=== PATIENT | female | born 1940 | race Caucasian/White ===

== ENCOUNTER 2017-12-18 11:14 | Inpatient (IN) ==
[2017-12-18] MEDS ORDERED: Docusate Sodium 100 MG Capsule PO PRN (15:34)
--- NOTE | 2017-12-18 17:16 | P.CONCA ---
History of Present Illness Service: Cardiology Consult date: 12/18/17 Reason for Consult: Severe aortic valve stenosis Primary Care Provider: UNKNOWN History of Present Illness: This is a 77-year-old female she has past medical history of rheumatic fever, hypothyroidism, hypertension, hyperlipidemia, and prior stroke. Patient presented to [facility] in [facility] with right hip pain and inability to ambulate or stand. Patient was found to have a right intertrochanteric hip fracture. Patient has also had a history of known aortic valve stenosis with murmur. Cardiology was consulted for consideration of cardiac clearance related to the right hip replacement. Transthoracic echocardiogram revealed severely reduced aortic valve area of 0.52 cm consistent with severe aortic valve stenosis and preserved left ventricular ejection fraction of 55-60%. Patient underwent cardiac catheterization which revealed moderate to severe mid left anterior descending coronary artery stenosis of 60-70% and mid right coronary artery stenosis of 50%. Patient was transferred for consideration of aortic valve replacement prior to hip surgery. Cardiothoracic surgery evaluated the patient and would be considered a transcatheter aortic valve replacement candidate. I was consulted for further recommendations as part of the structural heart team. Review of Systems All other systems reviewed negative except as stated in HPI [facility] - Medical History Medical History: Medical History (Last Updated 12/18/17 @ 17:12 by Cuco Valero MD) Anemia Aortic valve stenosis Hyperlipidemia Hypertension Hypothyroidism Stroke - Social History I have reviewed the patient's Social History: Yes - Tobacco History Tobacco Use In Past 30 Days: No - Alcohol History How Often Do You Have a Drink Containing Alcohol: Monthly or less - Substance Use History Substance History: No History of Abuse Medications and Allergies Active Medications: Active Medications Acetaminophen (Tylenol) 650 mg PO Q4H PRN PRN Reason: Temp > 100.4 Hydrocodone Bitart/Acetaminophen ([place] 5/325) 1 tab PO Q4H PRN PRN Reason: Acute Pain Al Hydroxide/Mg Hydroxide (Milk Of Magnesia Liq) 30 ml PO DAILY PRN PRN Reason: SEVERE CONSITIPATION Allopurinol (Zyloprim) 300 mg PO DAILY [facility] Docusate Sodium (Colace) 100 mg PO BID PRN PRN Reason: CONSTIPATION Enoxaparin Sodium (Lovenox Inj) 40 mg SQ DAILY [facility] Levothyroxine Sodium (Synthroid) 112 mcg PO DAILY@0600 [facility] Midodrine (Proamatine) 5 mg PO TID@0700,1200,1700 [facility] Ondansetron HCl (Zofran Inj) 4 mg IV.PUSH Q6H PRN PRN Reason: NAUSEA Oxybutynin Chloride (Ditropan) 5 mg PO TID [facility] Pravastatin Sodium (Pravachol) 80 mg PO DAILY [facility] Sodium Chloride (Ns Flush) 2 ml IV.FLUSH BID [facility] Sodium Chloride (Ns Flush) 2 ml IV.FLUSH PRN PRN PRN Reason: FLUSH AFTER USING IV ACCESS Allergies Allergy/AdvReac Type Severity Reaction Status Date / Time No Known Allergies Allergy Verified 12/18/17 15:58 Home Medications Medication Instructions Recorded Confirmed Type Vitamin D2 12/18/17 12/18/17 History acetaminophen 650 mg PO Q4H PRN 12/18/17 12/18/17 History alendronate 70 mg PO QWEEK 12/18/17 12/18/17 History allopurinol 300 mg PO DAILY 12/18/17 12/18/17 History amlodipine 5 mg PO DAILY 12/18/17 12/18/17 History docusate sodium 100 mg PO PRN 12/18/17 12/18/17 History enoxaparin 40 mg SUBCUT DAILY 12/18/17 12/18/17 History levothyroxine 112 mcg PO DAILY 12/18/17 12/18/17 History lisinopril 80 mg PO BID 12/18/17 12/18/17 History midodrine 10 mg PO DAILY 12/18/17 12/18/17 History morphine (PF) in 0.9 % NaCl 2 mg IV Q4H PRN 12/18/17 12/18/17 History omeprazole 20 mg PO DAILY 12/18/17 12/18/17 History ondansetron HCl (PF) 4 mg IV PRN 12/18/17 12/18/17 History oxybutynin chloride 5 mg PO TID 12/18/17 12/18/17 History pravastatin 80 mg PO DAILY 12/18/17 12/18/17 History Exam Vital signs: Vital Signs 12/18/17 14:00 Temperature 98 F Pulse Rate 86 Respiratory Rate 20 Blood Pressure 128/78 Pulse Oximetry 98 Intake & Output 12/17/17 12/18/17 12/18/17 18:59 06:59 18:59 Intake Total 240 / 240 Balance 240 / 240 Weight 76.2 kg Intake: Oral 240 / 240 Other: # Incontinent Voids 1 # Urine Diapers 1 Date of Last Bowel Movement 12/17/17 Weight On Admission 76.2 kg - Constitutional no acute distress - Routine HEENT Exam Head: Present: normocephalic Eye: Absent: PERRL ENT: Present: mucous membranes moist - Routine Neck Exam Absent: JVD - Routine Respiratory Exam Present: CTA bilaterally - Routine Cardiovascular Exam Present: RRR, murmur - Routine Abdominal Exam Present: soft, normoactive bowel sounds - Routine Extremities Exam Absent: full ROM - Routine Neurological Exam Present: oriented X3, CN II-XII intact. Absent: sensory deficit, motor deficit Results Intake and Output 12/18/17 12/18/17 12/18/17 06:59 14:59 22:59 Intake Total 240 / 240 Balance 240 / 240 Intake: Oral 240 / 240 Other: # Incontinent Voids 1 # Urine Diapers 1 Date of Last Bowel Movement 12/17/17 Weight 76.2 kg Weight On Admission 76.2 kg Patient Weight 12/19/17 06:59 Weight 76.2 kg Assessment and Plan - Assessment (1) Aortic valve stenosis Code(s): I35.0 - Nonrheumatic aortic (valve) stenosis Status: Acute - Plan Severe aortic valve stenosis -I will discuss the case in further details with cardiothoracic surgery. Patient would be a reasonable candidate for transcatheter aortic valve replacement. I would like to review the cardiac catheterization films to make sure the mid left anterior descending coronary artery stenosis would not potentially be an issue of rapid ventricular pacing is necessary for valve deployment. Patient would likely benefit from physical rehabilitation after hip surgery. She may need a short time inpatient rehabilitation prior to undertaking any transcatheter or surgical procedures. We will continue with current medical management approach and review imaging as available.
--- NOTE | 2017-12-18 17:59 | US ---
EXAM DATE: 12/18/2017 5:55 PM EDT AGE/SEX: 77 years / Female INDICATIONS: PreOp cardiac surgery. CLINICAL DATA: This is the patient's initial encounter. Patient reports that signs and symptoms have been present for 1 day and indicates a pain score of 0/10. MEDICAL/SURGICAL HISTORY: . Dizziness. None. COMPARISON: POI, US ECHOCARDIOGRAM, 08/05/2014. . VELOCITY PARAMETERS: ICA/CCA Ratio: Right 1.0 , Left 1.3 ICA: Right 57.5 cm/sec, Left 71.3 cm/sec CCA: Right 58.1 cm/sec, Left 54.0 cm/sec ECA: Right 38.3 cm/sec, Left 41.8 cm/sec Vertebral: Right 35.5 cm/sec antegrade, Left 64.7 cm/sec antegrade FINDINGS: Right Carotid: Moderate arteriosclerotic plaque is visualized.The waveforms are within normal limits . Left Carotid: Moderate arteriosclerotic plaque is visualized. The waveforms are within normal limits . Other: None. CONCLUSION: 1. Right Internal Carotid Artery: Moderate plaque without hemodynamically significant stenosis. 2. Left Internal Carotid Artery: Moderate plaque without hemodynamically significant stenosis. Electronically signed by: Alban Romano MD 12/18/2017 5:58 PM EDT
[2017-12-18] MEDS: Acetaminophen 325 MG Tablet PO PRN (20:20)
--- NOTE | 2017-12-18 20:55 | XR ---
EXAM DATE: 12/18/2017 8:50 PM EDT AGE/SEX: 77 years / Female INDICATIONS: Evaluate for pneumonia, pneumothorax, or communicable disease. Pre op CABG. CLINICAL DATA: This is the patient's initial encounter. Patient reports that signs and symptoms have been present for 1 day and indicates a pain score of 0/10. MEDICAL/SURGICAL HISTORY: Hypertension. None. COMPARISON: No prior exams available for comparison. FINDINGS: PA and lateral views of the chest demonstrate left basilar pneumonia. Heart normal in size. The cardi omediastinal contours are unremarkable. Osseous structures are intact. CONCLUSION: Left lower lobe pneumonia. Treatment and follow-up to resolution. Electronically signed by: Brandon Akers MD 12/18/2017 8:53 PM EDT
[2017-12-19 04:32] LABS: Baso % (Auto) 0.4 % (0.0-2.0); Eos # (Auto) 0.3 th/mm3 (0.0-0.4); Eos % (Auto) 2.8 % (0.0-4.0); Hematocrit 23.8 % (35.0-46.0); Hemoglobin 8.1 gm/dL (11.6-15.3); Lymph # (Auto) 1.7 th/mm3 (1.0-4.8); Lymph % (Auto) 17.3 % (9.0-44.0); Mean Corpuscular HGB Conc 33.9 % (32.0-36.0); Mean Corpuscular Hemoglobin 33.1 pg (27.0-34.0); Mean Corpuscular Volume 97.6 fL (80.0-100.0); Mean Platelet Volume 7.9 fL (7.0-11.0); Mono # (Auto) 0.6 th/mm3 (0.0-0.9); Mono % (Auto) 6.4 % (0.0-8.0); Neut # (Auto) 7.1 th/mm3 (1.8-7.7); Neut % (Auto) 73.1 % (16.0-70.0); Platelet Count 340 th/mm3 (150-450); Red Blood Count 2.44 mil/mm3 (4.00-5.30); White Blood Count 9.8 th/mm3 (4.0-11.0)
[2017-12-19 04:38] LABS: INR 1.1 Ratio; Prothrombin Time 11.1 sec (9.8-11.6)
[2017-12-19 05:00] LABS: Albumin 2.3 g/dL (3.4-5.0); Anion Gap 10 meq/L (5-15); Aspartate Aminotransferase 36 U/L (15-37); Blood Urea Nitrogen 6 mg/dL (7-18); Calcium 8.4 mg/dL (8.5-10.1); Carbon Dioxide 23.8 meq/L (21.0-32.0); Chloride 105 meq/L (98-107); Glomerular Filtration Rate 75 mL/min (>89); Glucose,Random 87 mg/dL (74-106); Potassium 3.8 meq/L (3.5-5.1); Sodium 139 meq/L (136-145)
[2017-12-19 05:02] LABS: Alanine Aminotransferase 33 U/L (10-53)
[2017-12-19 05:03] LABS: Alkaline Phosphatase 208 U/L (45-117); Total Protein 5.6 g/dL (6.4-8.2)
[2017-12-19] MEDS: Levothyroxine 112 MCG Tablet PO SCH (06:04)
--- NOTE | 2017-12-19 07:18 | MB ---
cc: Shadia Davenport MD DATE: 12/18/2017 HISTORY OF PRESENT ILLNESS: This is a 77-year-old female patient of Dr. Gomez, also Dr. David Archer, who was transferred from [facility] just recently, sustained a hip fracture, underwent right intertrochanteric fracture repair by Dr. Sanchez 10 days ago after sustaining a fall at home where she tripped and fell on the ground getting out of her car. There was no loss of consciousness, nor did she hit her head. During the course of her hospital stay, she apparently had an episode of some hypotension, shortness of breath, which led to an echocardiogram, which showed severe aortic stenosis with a valve area of 0.52 cm2. Peak gradient of 156. The left atrium was dilated. Some trivial mitral regurgitation, trace tricuspid regurgitation. The patient then underwent cardiac catheterization, which showed a 60% to 70% stenosis in the mid LAD. The RCA had a 50% stenosis in the midvessel. The distal portion had a 60% stenosis, mild pulmonary hypertension, right-sided heart pressures included RA pressures of 7/4, PA pressure 26/11 with a mean of 19, wedge pressure 18/15 with a mean of 12, SVR of 1840. Cardiac output of 4 liters per minute, valve area by catheterization showed a 0.4 cm2. She has been transferred to our facility to be evaluated for aortic valve replacement versus transcatheter aortic valve replacement, also with coronary disease, 2 vessels. PAST MEDICAL HISTORY: Includes history of rheumatic heart fever, severe aortic stenosis, hypertension, hyperlipidemia, osteoporosis, urinary incontinence, hypothyroidism, gout, gastroesophageal reflux disease, history of remote cerebrovascular accident in the past. CT chest showed left lower lobe pulmonary nodule that was recommended outpatient CT followup. PAST SURGICAL HISTORY: Right hip repair, recent also tonsillectomy. ALLERGIES: The patient has no known allergies. HOME MEDICATIONS: 1. Fosamax 70 mg weekly on . 2. Allopurinol 300 p.o. daily. 3. Amlodipine 5 mg daily, which was discontinued due to her hypotension in the hospital. 4. Levothyroxine 112 mcg daily. 5. Lisinopril 40 p.o. b.i.d. 6. Omeprazole 20 p.o. daily. 7. Oxybutynin 5 mg p.o. t.i.d. 8. Pravachol 40 p.o. daily. 9. She was also recently placed on milrinone 5 mg p.o. t.i.d. 10. Lovenox 40 mg daily while in the hospital. FAMILY HISTORY: Father at age 80 from diabetes. Mother from a stroke. SOCIAL HISTORY: The patient is , lives with her and her son lives with them. Prior to her fall and fractured hip, she was driving, cooking, walking half a mile per day. She did smoke for about 25 years, quit 20 years ago, 2 drinks per day. REVIEW OF SYSTEMS: GENERAL: No night sweats, fever, heat and cold intolerance. SKIN: No psoriasis, itching or hives. HEENT: No blurred vision, hearing loss. RESPIRATORY: Positive for recent shortness of breath. No paroxysmal nocturnal dyspnea. No orthopnea. No chest pain, only lightheadedness, some presyncope episode while in the hospital. GASTROINTESTINAL: No diarrhea or vomiting. GENITOURINARY: Positive for stress incontinence. NEUROLOGIC: Positive for history of cerebrovascular accident. ENDOCRINOLOGY: Positive for hypothyroidism. No diabetes per the patient. PHYSICAL EXAMINATION: VITAL SIGNS: Blood pressure 128/86, heart rate of 80. GENERAL: Patient is awake, alert, in no acute distress. HEENT: Head is normocephalic, atraumatic. Pupils equal and reactive. Oral mucosa pink, moist. She does wear dentures, but those were lost during her hospital stay at [facility]. NECK: Supple. No JVD. HEART: Sounds S1, S2, with a grade 3/6 systolic murmur, best heard on the left sternal border. LUNGS: Clear to auscultation. No wheezes, rales or rhonchi. ABDOMEN: Obese, soft, nontender. No masses or organomegaly. EXTREMITIES: She has got a healing scar to the right hip that is intact, well approximated with no drainage. She has a grade 2-3 coccyx decubitus noted. Her right lower leg has some ecchymosis and some mild swelling. She has good distal pulses. LABORATORY DATA: Recently done at [facility] included hemoglobin 7.9, hematocrit of 23, platelet count of 356. White cell count of 7.2. Sodium 135, potassium was 3.0, the repeat potassium was 3.5. BUN of 7 with a creatinine of 0.7. AST was 59, ALT of 51. GFR was 80 by Cockcroft calculation. EKG further testing including chest x-ray, TAVR CTA, carotid ultrasound are pending. STS data will be documented in the electronic record. At this point, the plan will be decided as per Dr. Davenport on further decision made regarding transcatheter aortic valve replacement and also addressing the blockages in the LAD and the RCA. Dictated by ZACKERY Pires The patient was examined and the chart reviewed on 12/18/2017. I agree with above. The clinical and ECHO findings were discussed in detail with the patient. Therapeutic options available including TAVR versus SAVR was discussed. Given her recent orthopedic procedure, I think she will best be managed with continued rehabilitation from her hip surgery with aortic valve therapy to follow. I agree that she will maximally benefit from TAVR given her frailty and significant medical comorbidities. The risks, complications including but not limited to bleeding, infection, stroke, myocardial injury and , and benefits of the procedure were discussed in details and all questions answered. The patient understands the provided information and agrees to proceed with the planned operation. Proceed with TAVR. Thank you allowing me to participate in the care of this patient. MD NAKIA Jiménez/hardy/trudy , 03:47 PM , 04:02 PM KIKA
--- NOTE | 2017-12-19 08:29 | P.PNCA ---
Addendum entered and electronically signed by BRITTANY Tabares 12/19/17 08:36 : aortic valve area= 0.52 cm CXR shows Left basilar infiltrate/pneumonia. Original Note: Subjective Interval history: patient reports mild cough. She does reports exertional dyspnea with moderate exertion over the past year with occasional atypical brief chest pains with and without exertion. Feeling well this morning without chest pain,sob or palpitations. Medications and Allergies Allergies Allergy/AdvReac Type Severity Reaction Status Date / Time No Known Allergies Allergy Verified 12/18/17 15:58 Home Medications Medication Instructions Recorded Confirmed Type Vitamin D2 12/18/17 12/18/17 History acetaminophen 650 mg PO Q4H PRN 12/18/17 12/18/17 History alendronate 70 mg PO QWEEK 12/18/17 12/18/17 History allopurinol 300 mg PO DAILY 12/18/17 12/18/17 History amlodipine 5 mg PO DAILY 12/18/17 12/18/17 History docusate sodium 100 mg PO PRN 12/18/17 12/18/17 History enoxaparin 40 mg SUBCUT DAILY 12/18/17 12/18/17 History levothyroxine 112 mcg PO DAILY 12/18/17 12/18/17 History lisinopril 80 mg PO BID 12/18/17 12/18/17 History midodrine 10 mg PO DAILY 12/18/17 12/18/17 History morphine (PF) in 0.9 % NaCl 2 mg IV Q4H PRN 12/18/17 12/18/17 History omeprazole 20 mg PO DAILY 12/18/17 12/18/17 History ondansetron HCl (PF) 4 mg IV PRN 12/18/17 12/18/17 History oxybutynin chloride 5 mg PO TID 12/18/17 12/18/17 History pravastatin 80 mg PO DAILY 12/18/17 12/18/17 History Active Medications: Active Medications Acetaminophen (Tylenol) 650 mg PO Q4H PRN PRN Reason: Temp > 100.4 Last Admin: 12/18/17 20:20 Dose: 650 mg Hydrocodone Bitart/Acetaminophen ([place] 5/325) 1 tab PO Q4H PRN PRN Reason: Acute Pain Al Hydroxide/Mg Hydroxide (Milk Of Magnesia Liq) 30 ml PO DAILY PRN PRN Reason: SEVERE CONSITIPATION Allopurinol (Zyloprim) 300 mg PO DAILY [facility] Docusate Sodium (Colace) 100 mg PO BID PRN PRN Reason: CONSTIPATION Enoxaparin Sodium (Lovenox Inj) 40 mg SQ DAILY [facility] Levothyroxine Sodium (Synthroid) 112 mcg PO DAILY@0600 [facility] Last Admin: 12/19/17 06:04 Dose: 112 mcg Midodrine (Proamatine) 5 mg PO TID@0700,1200,1700 [facility] Last Admin: 12/19/17 06:04 Dose: 5 mg Ondansetron HCl (Zofran Inj) 4 mg IV.PUSH Q6H PRN PRN Reason: NAUSEA Oxybutynin Chloride (Ditropan) 5 mg PO TID [facility] Last Admin: 12/18/17 18:18 Dose: 5 mg Pravastatin Sodium (Pravachol) 80 mg PO DAILY [facility] Sodium Chloride (Ns Flush) 2 ml IV.FLUSH BID [facility] Last Admin: 12/18/17 20:22 Dose: 2 ml Sodium Chloride (Ns Flush) 2 ml IV.FLUSH PRN PRN PRN Reason: FLUSH AFTER USING IV ACCESS Physical Exam Vital signs: Vital Signs 12/18/17 14:00 12/18/17 19:00 12/18/17 20:00 Temperature 98 F 98 F Pulse Rate 86 95 H 90 Respiratory Rate 20 Blood Pressure 128/78 120/72 Pulse Oximetry 98 95 12/18/17 21:00 12/18/17 22:00 12/18/17 22:49 Temperature 98.1 F Pulse Rate 86 80 92 H Respiratory Rate 16 Blood Pressure 117/70 Pulse Oximetry 93 L 12/18/17 23:33 12/19/17 00:33 12/19/17 01:33 Temperature Pulse Rate 89 80 88 Respiratory Rate Blood Pressure Pulse Oximetry 12/19/17 02:33 12/19/17 03:00 12/19/17 03:57 Temperature 98.4 F Pulse Rate 88 86 85 Respiratory Rate 18 Blood Pressure 127/69 Pulse Oximetry 94 L 12/19/17 04:00 12/19/17 05:00 12/19/17 06:00 Temperature Pulse Rate 90 86 88 Respiratory Rate Blood Pressure Pulse Oximetry Intake & Output 12/18/17 12/19/17 12/19/17 18:59 06:59 18:59 Intake Total 240 / 240 240 / 240 Balance 240 / 240 240 / 240 Weight 76.2 kg 76 kg Intake: Oral 240 / 240 240 / 240 Other: # Incontinent Voids 1 # Urine Diapers 1 2 Date of Last Bowel Movement 12/17/17 Weight On Admission 76.2 kg Results 12/19/17 04:14 12/19/17 04:14 Cardiac Enzymes 12/19/17 Range/Units 04:14 AST 36 (15-37) U/L Coagulation 12/19/17 Range/Units 04:14 PT 11.1 (9.8-11.6) sec CBC 12/19/17 Range/Units 04:14 WBC 9.8 (4.0-11.0) th/mm3 RBC 2.44 L (4.00-5.30) mil/mm3 Hgb 8.1 L (11.6-15.3) gm/dL Hct 23.8 L (35.0-46.0) % Plt Count 340 (150-450) th/mm3 Neut # (Auto) 7.1 (1.8-7.7) th/mm3 Lymph # (Auto) 1.7 (1.0-4.8) th/mm3 [place] # (Auto) 0.6 (0.0-0.9) th/mm3 Eos # (Auto) 0.3 (0.0-0.4) th/mm3 Baso # (Auto) 0.0 (0.0-0.2) th/mm3 Comprehensive Metabolic Panel 12/19/17 Range/Units 04:14 Sodium 139 (136-145) meq/L Potassium 3.8 (3.5-5.1) meq/L Chloride 105 (98-107) meq/L Carbon Dioxide 23.8 (21.0-32.0) meq/L BUN 6 L (7-18) mg/dL Creatinine 0.75 (0.50-1.00) mg/dL Calcium 8.4 L (8.5-10.1) mg/dL AST 36 (15-37) U/L ALT 33 (10-53) U/L Alkaline Phosphatase 208 H (45-117) U/L Total Protein 5.6 L (6.4-8.2) g/dL Albumin 2.3 L (3.4-5.0) g/dL Intake and Output 12/18/17 12/19/17 12/19/17 22:59 06:59 14:59 Intake Total 240 / 240 240 / 240 Balance 240 / 240 240 / 240 Intake: Oral 240 / 240 240 / 240 Other: # Incontinent Voids 1 # Urine Diapers 1 2 Weight 76 kg - Imaging and Cardiology Imaging: Impressions Carotid Doppler Study 12/18/17 15:22 CONCLUSION: 1. Right Internal Carotid Artery: Moderate plaque without hemodynamically significant stenosis. 2. Left Internal Carotid Artery: Moderate plaque without hemodynamically significant stenosis. Chest X-Ray 12/18/17 15:22 CONCLUSION: Left lower lobe pneumonia. Treatment and follow-up to resolution. Assessment and Plan - Assessment (1) Aortic valve stenosis Code(s): I35.0 - Nonrheumatic aortic (valve) stenosis Status: Acute - Plan 77 yo F with rheumatic fever as a child, aortic stenosis, hypothyroidism, HTN, HLD, prior CVA and CAD presents from [facility] after incurring a R intertrochanteric fracture due to mechanical fall while getting out of her car 2 weeks ago. Her hip was surgically repaired 10 days ago. During hospitalization and echo showed severe , cardiac catheterization revealed 2 vessel disease (mod-severe LAD, 50% RCA stenosis). She has been [place] [facility] [place] and treatment of CAD and with TAVR. Severe aortic valve stenosis -She is a reasonable candidate for TAVR. Will review the cardiac catheterization films to make sure the mid left anterior descending coronary artery stenosis would not potentially be an issue of rapid ventricular pacing is necessary for valve deployment. Patient would likely benefit from physical rehabilitation after hip surgery. She may need a short time inpatient rehabilitation prior to undertaking any transcatheter or surgical procedures. We will continue with current medical management approach and review imaging as available. - Attending Attestation agree with above anemia - Hb 7.9-8.1. known CAD. severe transfuse 1 PRBC. lasix 20 IV x 1 after repeat Hb in am improve strength and mobility to help with meaningful recovery discussed with Dr. Davenport. plan for inpatient rehab x 1-2 weeks then TAVR follow Hb continue medical therapy
[2017-12-19] MEDS: Enoxaparin Inj 40 MG/0.4 ML Syringe SQ SCH (09:14)
[2017-12-19 09:51] LABS: Bacteria,Urine Rare /hpf; Bilirubin,Urine Negative (Negative); Clarity,Urine Clear (Clear); Color,Urine Straw (Yellw/Straw); Glucose,Urine (UA) Negative (Negative); Leukocyte Esterase,Urine Negative (Negative); Nitrite,Urine Negative (Negative); Specific Gravity,Urine 1.008 (1.002-1.035); Squamous Epithelial Cell,Urine 3 /hpf (0-5)
[2017-12-19] MEDS ORDERED: Sodium Chlor 0.9% Inj 250 ML IV.SIG SCH (12:00)
[2017-12-19] MEDS: Ferrous Sulfate 325 MG Tablet PO SCH ×2 (12:09→16:12)
[2017-12-19] MEDS: Allopurinol 300 MG Tablet PO SCH (12:10)
--- NOTE | 2017-12-19 12:23 | P.PNWCN ---
Wound Care Nurse Consult Description: Wound consult ordered by Loren SOTO for wound management. Communicated with: Barrett VALDIVIA, Loren SOTO Recommendation: 1. Encourage patient to reposition to left and right side every 2 hours for comfort and offloading. 2. Cleanse left upper buttocks with normal saline only (wound cleanser deactivated Santyl by 80%). 3. Apply Santyl 2mm thick to necrotic wound base ,Apply Calazime cream to periwound cover with saline moistened gauze secure with border gauze or ABD.Change dressing daily or as needed for exudate management or dislodgement. 4. Sign and date all dressings. 5. Reinforce steri strip to right lateral hip incision as needed. Additional information: Patient was seen today by script writer for wound management.Patient alert on stretcher upon script writer arrival in no acute distress.Patient was able to independently reposition self to left side for visual assessment. Brick Or Block Maker was able to visualize sacral/coccyx region.Patient noted to have 10 day old surgical incision to lateral right hip with incision dehiscence noted ~3cm. incision cleansed with normal saline pat dry Cavilon skin prep applied 3 steri strips applied . Patient has deformed sacral/coccyx veering to right side .States deformity is caused by prior fracture.Brick Or Block Maker was able to visualize sacral region patient has mixed etiology moisture /friction/pressure injury measuring 6.0cm x 4.3cm x yellow/brown slough. Wound base is 80% moist yellow/ brown adhered slough 20% pink partial thickness tissue loss.wound edges are well defined irregular in shape even with wound base.Periwound blanchable.Wound cleansed with normal saline pat dry Calazime cream applied to wound base and periwound covered with ABD secure with paper tape.Patient tolerated wound acre well Barrett VALDIVIA to apply Santyl when available to floor. Wound/Pressure Injury - Wound Left Sacrum Wound Staging: Unstageable Wound Assessment: Admission Wound Type: Pressure Injury Is This a Chronic Wound: Yes Requested from Provider a Wound Care Consult: No (Paty VALDIVIA,[facility] seen 12/19) Length (cm): 6.0 Width (cm): 4.3 Wound Bed Appearance: Necrotic, Peeling Skin, [place], Shiny Surrounding Tissue Appearance: Blanched/Dull Surrounding Tissue Temperature: Cool Drainage Description: Serosanguinous Drainage Amount: Scant Drainage Odor: No Odor Dressing Status: Changed Cleansing Solution: Saline Topical: Calazime Primary Dressing: Absorbant Pad Tape Type: Paper Wound Dressing Change Date: 12/19/17
[2017-12-19] MEDS: Acetaminophen 325 MG Tablet PO PRN ×2 (13:39→18:31)
--- NOTE | 2017-12-19 14:12 | P.PNCV ---
- Note Subjective/Hospital Course: 77-year-old female patient of Dr. Gomez, also Dr. David Archer, who was transferred from [facility] just recently, sustained a hip fracture, underwent right intertrochanteric fracture repair by Dr. Sanchez 10 days ago after sustaining a fall at home where she tripped and fell on the ground getting out of her car. There was no loss of consciousness, nor did she hit her head. During the course of her hospital stay, she apparently had an episode of some hypotension, shortness of breath, which led to an echocardiogram , which showed severe aortic stenosis with a valve area of 0.52 cm2. Peak gradient of 156. The left atrium was dilated. Some trivial mitral regurgitation, trace tricuspid regurgitation. The patient then underwent cardiac catheterization, which showed a 60% to 70% stenosis in the mid LAD. The RCA had a 50% stenosis in the midvessel. The distal portion had a 60% stenosis, mild pulmonary hypertension, right-sided heart pressures included RA pressures of 7/4, PA pressure 26/11 with a mean of 19, wedge pressure 18/15 with a mean of 12, SVR of 1840. Cardiac output of 4 liters per minute, valve area by catheterization showed a 0.4 cm2. She has been transferred to our facility to be evaluated for aortic valve replacement versus transcatheter aortic valve replacement, also with coronary disease, 2 vessels. PAST MEDICAL HISTORY: Includes history of rheumatic heart fever, severe aortic stenosis, hypertension, hyperlipidemia, osteoporosis, urinary incontinence, hypothyroidism, gout, gastroesophageal reflux disease, history of remote cerebrovascular accident in the past. CT chest showed left lower lobe pulmonary nodule that was recommended outpatient CT followup. 12/19 pt feels fair HGB 8.1 for RBC today await TAVR CTA will dc midodrine BP stable OOB with PT / activity for full weight bearing ok per Dr Sanchez ( ortho at [facility] ) Hospitalist consult agree with rehab placement appreciate wound care Objective: Vital Signs - 24 hr 12/18/17 19:00 12/18/17 20:00 12/18/17 21:00 Temperature 98 F Pulse Rate 95 H 90 86 Respiratory Rate Blood Pressure 120/72 Pulse Oximetry 95 12/18/17 22:00 12/18/17 22:49 12/18/17 23:33 Temperature 98.1 F Pulse Rate 80 92 H 89 Respiratory Rate 16 Blood Pressure 117/70 Pulse Oximetry 93 L 12/19/17 00:33 12/19/17 01:33 12/19/17 02:33 Temperature Pulse Rate 80 88 88 Respiratory Rate Blood Pressure Pulse Oximetry 12/19/17 03:00 12/19/17 03:57 12/19/17 04:00 Temperature 98.4 F Pulse Rate 86 85 90 Respiratory Rate 18 Blood Pressure 127/69 Pulse Oximetry 94 L 12/19/17 05:00 12/19/17 06:00 12/19/17 07:00 Temperature Pulse Rate 86 88 107 H Respiratory Rate Blood Pressure Pulse Oximetry 12/19/17 08:00 12/19/17 09:00 12/19/17 10:00 Temperature 97.9 F Pulse Rate 91 H 96 H 97 H Respiratory Rate 20 Blood Pressure 130/78 Pulse Oximetry 96 12/19/17 11:00 12/19/17 11:18 12/19/17 12:00 Temperature 98.1 F Pulse Rate 91 H 91 H 100 H Respiratory Rate 20 Blood Pressure 116/70 Pulse Oximetry 96 GENERAL: A&O x 3 SKIN: Warm and dry. pt has stage 2 pressure ulcer on coccyx right hip incision intact and well approximated HEAD: Normocephalic. EYES: No scleral icterus. No injection or drainage. NECK: Supple, trachea midline. No JVD or lymphadenopathy. CARDIOVASCULAR: Regular rate and rhythm 3/6 SM , no gallops, or rubs. RESPIRATORY: Breath sounds equal bilaterally. No accessory muscle use. GASTROINTESTINAL: Abdomen soft, non-tender, nondistended. MUSCULOSKELETAL: No cyanosis, or edema. BACK: Nontender without obvious deformity. No CVA tenderness. Labs: Laboratory Results - last 12 hr 12/19/17 12/19/17 12/19/17 04:14 04:14 04:14 WBC 9.8 RBC 2.44 L Hgb 8.1 L Hct 23.8 L MCV 97.6 MCH 33.1 MCHC 33.9 RDW 15.0 Plt Count 340 MPV 7.9 Neut % (Auto) 73.1 H Lymph % (Auto) 17.3 [place] % (Auto) 6.4 Eos % (Auto) 2.8 Baso % (Auto) 0.4 Neut # (Auto) 7.1 Lymph # (Auto) 1.7 [place] # (Auto) 0.6 Eos # (Auto) 0.3 Baso # (Auto) 0.0 WBC Differential . Differential Comment Auto diff final PT 11.1 INR 1.1 Sodium 139 Potassium 3.8 Chloride 105 Carbon Dioxide 23.8 Anion Gap 10 BUN 6 L Creatinine 0.75 Estimated GFR 75 L Random Glucose 87 Calcium 8.4 L Total Bilirubin 0.6 AST 36 ALT 33 Alkaline Phosphatase 208 H Total Protein 5.6 L Albumin 2.3 L Urine Color Urine Clarity Urine pH Ur Specific [place] Urine Protein Urine Glucose (UA) Urine Ketones Urine Occult Blood Urine Nitrate Urine Bilirubin Urine Urobilinogen Ur Leukocyte Esterase Urine WBC Ur Squamous Epith Cells Urine Bacteria Micro UA Comment Ur Microscopic Review Urine Culture Comments Blood Type Blood Type Recheck Antibody Screen MTS Gel Crossmatch 12/19/17 12/19/17 12/19/17 04:14 09:15 12:40 WBC RBC Hgb Hct MCV MCH MCHC RDW Plt Count MPV Neut % (Auto) Lymph % (Auto) [place] % (Auto) Eos % (Auto) Baso % (Auto) Neut # (Auto) Lymph # (Auto) [place] # (Auto) Eos # (Auto) Baso # (Auto) WBC Differential Differential Comment PT INR Sodium Potassium Chloride Carbon Dioxide Anion Gap BUN Creatinine Estimated GFR Random Glucose Calcium Total Bilirubin AST ALT Alkaline Phosphatase Total Protein Albumin Urine Color Straw Urine Clarity Clear Urine pH 7.0 Ur Specific [place] 1.008 Urine Protein Negative Urine Glucose (UA) Negative Urine Ketones Negative Urine Occult Blood Moderate H Urine Nitrate Negative Urine Bilirubin Negative Urine Urobilinogen Less than 2 Ur Leukocyte Esterase Negative Urine WBC Less than 1 Ur Squamous Epith Cells 3 Urine Bacteria Rare H Micro UA Comment Culture not ind Ur Microscopic Review Not Reportable Urine Culture Comments Culture not ind Blood Type B Positive Blood Type Recheck Required Antibody Screen Negative MTS Gel Crossmatch See Detail Result Diagrams: 12/19/17 04:14 12/19/17 04:14 Telemetry: NSR - Plan (1) S/P hip replacement Plan: PT/OT full weight bearing (2) Blood loss anemia Plan: for PRBC today quaic stool (3) HCAP (healthcare-associated pneumonia) Plan: add levaquin x 5 days (4) Aortic valve stenosis Plan: on ASA TAVR work up
--- NOTE | 2017-12-19 15:41 | CT ---
EXAM DATE: 12/19/2017 12:29 PM EDT AGE/SEX: 77 years / Female INDICATIONS: TAVR, aortic stenosis. CLINICAL DATA: This is the patient's initial encounter. Patient reports that signs and symptoms have been present for 1 day and indicates a pain score of 3/10. MEDICAL/SURGICAL HISTORY: Cerebrovascular disease. Cardiovascular disease. . Right hip surgery. RADIATION DOSE: 11.32 CTDI (mGy) COMPARISON: No prior exams available for comparison. TECHNIQUE: Volumetric scanning was performed using a multi-row detector CT scanner during bolus infu keiko of 95 ml Omnipaque 350 (iohexol) nonionic water-soluble contrast as a single exam dose. The da ta was post processed with a variety of visualization algorithms including full volume maximum intens ity projection, multi-planar sliding thin slab reformation, curved planar reformation, and surface re ndering techniques. Using automated exposure control and adjustment of the mA and/or kV according to patient size, radiation dose was kept as low as reasonably achievable to obtain optimal diagnostic q uality images. DICOM format image data is available electronically for review and comparison. FINDINGS: CARDIAC: The coronary system is right dominant. Diffuse coronary artery atherosclerotic calcificatio ns. There is no pericardial effusion AORTIC ROOT/VALVE: 3 cusps are evident with severe calcifications. The aortic root measures 3.4 cm. Mid thoracic aorta measures 4.4 cm with mild scattered calcifications. THORACIC AORTA: The thoracic aortic root is normal with normal branching of the great vessels. Ther e is no evidence of aneurysm or dissection. Calcified plaque involving the arch and origin of the arc h vessels. No hemodynamically significant stenosis involving the origin of the arch vessels. A 30-40% stenosis of the mid left subclavian artery noted. ABDOMINAL AORTA: The aorta is normal in caliber without aneurysm or dissection. Diffuse calcified pl aque throughout the abdominal aorta and common iliac arteries bilaterally. CELIAC ARTERY: Celiac artery is widely patent. SMA: Superior mesenteric artery is widely patent. RIGHT RENAL ARTERY: Right renal artery is widely patent. LEFT RENAL ARTERY: Left renal artery is heavily calcified with 50-60% stenosis of its origin.. RIGHT COMMON ILIAC: No evidence of aneurysm, mural thrombus, dissection, or stenosis. The vessel is calcified. The common femoral measures 10 mm. LEFT COMMON ILIAC: No evidence of aneurysm, mural thrombus, dissection, or stenosis. The vessel is c alcified. The common femoral measures 10 mm THORAX: Tiny posterior layering bilateral pleural effusions. No infiltrates or masses. A calcified g ranuloma is seen within the left lower lobe. A large hiatal hernia.. ABDOMEN: Cholelithiasis. Bilateral cortical renal cysts. More abundant on the right. No hydronephros is. Scattered colonic diverticuli without acute inflammation. PELVIS: Air noted within the lumen of the urinary bladder. No wall thickening observed. This suggest s recent instrumentation. A right hip prosthesis. Bilateral SI joint sclerotic change. No fusion. Deg enerative changes of the lumbar spine. CONCLUSION: 1. 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 2. 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 3. 50-60% stenosis of the left renal artery. 4. Cholelithiasis. 5. Small bilateral pleural effusions. Electronically signed by: Humberto Michel MD 12/19/2017 3:39 PM EDT
[2017-12-19] MEDS: Collagenase Oint 30 GM Tube TOPICAL SCH (16:10)
[2017-12-19] MEDS: Levofloxacin 500 mg Premix Inj 500 MG/100 ML PIGGYBACK IV.SIG SCH (16:11)
[2017-12-19 16:44] LABS: Hemoglobin A1c 4.8 % (4.3-6.0)
[2017-12-20] MEDS: Levothyroxine 112 MCG Tablet PO SCH (05:49)
--- NOTE | 2017-12-20 08:34 | P.PNCV ---
- Note Subjective/Hospital Course: 77-year-old female patient of Dr. Gomez, also Dr. David Archer, who was transferred from [place] just recently, sustained a hip fracture, underwent right intertrochanteric fracture repair by Dr. Sanchez 10 days ago after sustaining a fall at home where she tripped and fell on the ground getting out of her car. There was no loss of consciousness, nor did she hit her head. During the course of her hospital stay, she apparently had an episode of some hypotension, shortness of breath, which led to an echocardiogram , which showed severe aortic stenosis with a valve area of 0.52 cm2. Peak gradient of 156. The left atrium was dilated. Some trivial mitral regurgitation, trace tricuspid regurgitation. The patient then underwent cardiac catheterization, which showed a 60% to 70% stenosis in the mid LAD. The RCA had a 50% stenosis in the midvessel. The distal portion had a 60% stenosis, mild pulmonary hypertension, right-sided heart pressures included RA pressures of 7/4, PA pressure 26/11 with a mean of 19, wedge pressure 18/15 with a mean of 12, SVR of 1840. Cardiac output of 4 liters per minute, valve area by catheterization showed a 0.4 cm2. She has been transferred to our facility to be evaluated for aortic valve replacement versus transcatheter aortic valve replacement, also with coronary disease, 2 vessels. PAST MEDICAL HISTORY: Includes history of rheumatic heart fever, severe aortic stenosis, hypertension, hyperlipidemia, osteoporosis, urinary incontinence, hypothyroidism, gout, gastroesophageal reflux disease, history of remote cerebrovascular accident in the past. CT chest showed left lower lobe pulmonary nodule that was recommended outpatient CT followup. 12/19 pt feels fair HGB 8.1 for RBC today await TAVR CTA will dc midodrine BP stable OOB with PT / activity for full weight bearing ok per Dr Sanchez ( ortho at [facility] ) Hospitalist consult agree with rehab placement appreciate wound care 12/20 Clinically and hemodynamically stable and doing well Again discussed plan and options with her in detail including interim rehab prior to aortic valve procedure May need intervention to the LAD as well prior to her TAVR Appreciate consultants input Objective: Vital Signs - 24 hr 12/19/17 09:00 12/19/17 10:00 12/19/17 11:00 Temperature Pulse Rate 96 H 97 H 91 H Respiratory Rate Blood Pressure Pulse Oximetry 12/19/17 11:18 12/19/17 12:00 12/19/17 13:00 Temperature 98.1 F Pulse Rate 91 H 100 H 98 H Respiratory Rate 20 Blood Pressure 116/70 Pulse Oximetry 96 12/19/17 14:00 12/19/17 14:17 12/19/17 14:30 Temperature 98.6 F 98.9 F Pulse Rate 97 H 92 H 93 H Respiratory Rate 16 16 Blood Pressure 111/78 115/82 Pulse Oximetry 97 98 12/19/17 15:00 12/19/17 16:00 12/19/17 17:00 Temperature 98.8 F 98.9 F Pulse Rate 98 H 80 93 H Respiratory Rate 16 20 Blood Pressure 110/65 110/65 Pulse Oximetry 95 98 12/19/17 18:00 12/19/17 19:00 12/19/17 20:00 Temperature 98.7 F 98.5 F Pulse Rate 98 H 87 92 H Respiratory Rate 18 18 Blood Pressure 135/77 138/77 Pulse Oximetry 98 94 L 12/19/17 21:00 12/19/17 22:00 12/19/17 23:00 Temperature Pulse Rate 86 88 85 Respiratory Rate Blood Pressure Pulse Oximetry 12/19/17 23:23 12/20/17 00:00 12/20/17 01:00 Temperature 98.9 F Pulse Rate 92 H 88 88 Respiratory Rate 18 Blood Pressure 118/76 Pulse Oximetry 94 L 12/20/17 02:00 12/20/17 03:00 12/20/17 04:00 Temperature 98.7 F Pulse Rate 88 88 91 H Respiratory Rate 18 Blood Pressure 122/66 Pulse Oximetry 3 L 12/20/17 05:00 12/20/17 06:00 Temperature Pulse Rate 86 88 Respiratory Rate Blood Pressure Pulse Oximetry Labs: Laboratory Results - last 12 hr 12/19/17 04:14 Hemoglobin A1c 4.8 Result Diagrams: 12/19/17 04:14 12/19/17 04:14 - Plan (1) S/P hip replacement Plan: PT/OT full weight bearing (2) Blood loss anemia Plan: for PRBC today quaic stool (3) HCAP (healthcare-associated pneumonia) Plan: add levaquin x 5 days (4) Aortic valve stenosis Plan: on ASA TAVR work up
[2017-12-20] MEDS: Enoxaparin Inj 40 MG/0.4 ML Syringe SQ SCH (10:07)
[2017-12-20] MEDS: Collagenase Oint 30 GM Tube TOPICAL SCH (10:07)
[2017-12-20] MEDS: Allopurinol 300 MG Tablet PO SCH ×2 (10:08→10:12)
--- NOTE | 2017-12-20 10:13 | P.PNCA ---
Subjective Interval history: Pt without complaints Medications and Allergies Active Medications: Active Medications Acetaminophen (Tylenol) 650 mg PO Q4H PRN PRN Reason: Temp > 100.4 Last Admin: 12/19/17 18:31 Dose: 650 mg Hydrocodone Bitart/Acetaminophen ([place] 5/325) 1 tab PO Q4H PRN PRN Reason: Acute Pain Al Hydroxide/Mg Hydroxide (Milk Of Magnesia Liq) 30 ml PO DAILY PRN PRN Reason: SEVERE CONSITIPATION Allopurinol (Zyloprim) 300 mg PO DAILY [facility] Last Admin: 12/19/17 12:10 Dose: 300 mg Aspirin (Ecotrin) 81 mg PO DAILY [facility] Last Admin: 12/19/17 12:15 Dose: 81 mg Collagenase (Santyl Oint) 1 applicatio TOPICAL DAILY [facility] Last Admin: 12/19/17 16:10 Dose: 1 applicatio Docusate Sodium (Colace) 100 mg PO BID PRN PRN Reason: CONSTIPATION Enoxaparin Sodium (Lovenox Inj) 40 mg SQ DAILY [facility] Last Admin: 12/19/17 09:14 Dose: 40 mg Ferrous Sulfate (Ferosul) 325 mg PO BID@1200,1700 [facility] Last Admin: 12/19/17 16:12 Dose: 325 mg Levofloxacin/Dextrose (Levaquin 500 Mg Premix Inj) 500 mg in 100 mls @ 100 mls/ hr IV.SIG Q24H [facility] Stop: 12/24/17 13:59 Last Infusion: 12/20/17 07:27 Dose: Infused Levothyroxine Sodium (Synthroid) 112 mcg PO DAILY@0600 [facility] Last Admin: 12/20/17 05:49 Dose: 112 mcg Ondansetron HCl (Zofran Inj) 4 mg IV.PUSH Q6H PRN PRN Reason: NAUSEA Last Admin: 12/20/17 05:49 Dose: 4 mg Oxybutynin Chloride (Ditropan) 5 mg PO TID [facility] Last Admin: 12/19/17 18:29 Dose: 5 mg Pravastatin Sodium (Pravachol) 80 mg PO DAILY [facility] Last Admin: 12/19/17 09:13 Dose: 80 mg Sodium Chloride (Ns Flush) 2 ml IV.FLUSH BID [facility] Last Admin: 12/20/17 05:49 Dose: 2 ml Sodium Chloride (Ns Flush) 2 ml IV.FLUSH PRN PRN PRN Reason: FLUSH AFTER USING IV ACCESS Allergies Allergy/AdvReac Type Severity Reaction Status Date / Time No Known Allergies Allergy Verified 12/18/17 15:58 Home Medications Medication Instructions Recorded Confirmed Type Vitamin D2 12/18/17 12/18/17 History acetaminophen 650 mg PO Q4H PRN 12/18/17 12/18/17 History alendronate 70 mg PO QWEEK 12/18/17 12/18/17 History allopurinol 300 mg PO DAILY 12/18/17 12/18/17 History amlodipine 5 mg PO DAILY 12/18/17 12/18/17 History docusate sodium 100 mg PO PRN 12/18/17 12/18/17 History enoxaparin 40 mg SUBCUT DAILY 12/18/17 12/18/17 History levothyroxine 112 mcg PO DAILY 12/18/17 12/18/17 History lisinopril 80 mg PO BID 12/18/17 12/18/17 History midodrine 10 mg PO DAILY 12/18/17 12/18/17 History morphine (PF) in 0.9 % NaCl 2 mg IV Q4H PRN 12/18/17 12/18/17 History omeprazole 20 mg PO DAILY 12/18/17 12/18/17 History ondansetron HCl (PF) 4 mg IV PRN 12/18/17 12/18/17 History oxybutynin chloride 5 mg PO TID 12/18/17 12/18/17 History pravastatin 80 mg PO DAILY 12/18/17 12/18/17 History Physical Exam Vital signs: Vital Signs 12/19/17 11:00 12/19/17 11:18 12/19/17 12:00 Temperature 98.1 F Pulse Rate 91 H 91 H 100 H Respiratory Rate 20 Blood Pressure 116/70 Pulse Oximetry 96 12/19/17 13:00 12/19/17 14:00 12/19/17 14:17 Temperature 98.6 F Pulse Rate 98 H 97 H 92 H Respiratory Rate 16 Blood Pressure 111/78 Pulse Oximetry 97 12/19/17 14:30 12/19/17 15:00 12/19/17 16:00 Temperature 98.9 F 98.8 F 98.9 F Pulse Rate 93 H 98 H 80 Respiratory Rate 16 16 20 Blood Pressure 115/82 110/65 110/65 Pulse Oximetry 98 95 98 12/19/17 17:00 12/19/17 18:00 12/19/17 19:00 Temperature 98.7 F Pulse Rate 93 H 98 H 87 Respiratory Rate 18 Blood Pressure 135/77 Pulse Oximetry 98 12/19/17 20:00 12/19/17 21:00 12/19/17 22:00 Temperature 98.5 F Pulse Rate 92 H 86 88 Respiratory Rate 18 Blood Pressure 138/77 Pulse Oximetry 94 L 12/19/17 23:00 12/19/17 23:23 12/20/17 00:00 Temperature 98.9 F Pulse Rate 85 92 H 88 Respiratory Rate 18 Blood Pressure 118/76 Pulse Oximetry 94 L 12/20/17 01:00 12/20/17 02:00 12/20/17 03:00 Temperature Pulse Rate 88 88 88 Respiratory Rate Blood Pressure Pulse Oximetry 12/20/17 04:00 12/20/17 05:00 12/20/17 06:00 Temperature 98.7 F Pulse Rate 91 H 86 88 Respiratory Rate 18 Blood Pressure 122/66 Pulse Oximetry 3 L 12/20/17 07:00 Temperature Pulse Rate 83 Respiratory Rate Blood Pressure Pulse Oximetry Intake & Output 12/19/17 12/20/17 12/20/17 18:59 06:59 18:59 Intake Total 1100 / 1100 480 / 480 350 / 350 Output Total 800 / 800 1650 / 1650 Balance 300 / 300 -1170 / -1170 350 / 350 Weight 73 kg Intake: IV 350 / 350 Levaquin 500 mg Premix Inj 500 100 / 100 mg In 100 ml @ 100 mls/hr IV. SIG Q24H [facility] Rx#:[id number] NS Inj 250 ML @ 15 mls/hr IV. 250 / 250 SIG ONCE SABI Rx#:[id number] Oral 600 / 600 480 / 480 Other 100 / 100 Rbc As-3 Leukoreduced Unit 100 / 100 [id number] Intake (Blood Product) Amt 400 / 400 Rbc As-3 Leukoreduced Unit 400 / 400 [id number] Output: Urine 800 / 800 1650 / 1650 Other: Date of Last Bowel Movement 12/19/17 12/20/17 # Bowel Movements 1 - Constitutional no acute distress - Routine HEENT Exam Head: Present: normocephalic - Routine Respiratory Exam Present: CTA bilaterally - Routine Cardiovascular Exam Comments: RRR, harsh MILAGROS - Routine Extremities Exam Comments: no edema Results 12/19/17 04:14 12/19/17 04:14 Cardiac Enzymes 12/19/17 Range/Units 04:14 AST 36 (15-37) U/L Coagulation 12/19/17 Range/Units 04:14 PT 11.1 (9.8-11.6) sec CBC 12/19/17 Range/Units 04:14 WBC 9.8 (4.0-11.0) th/mm3 RBC 2.44 L (4.00-5.30) mil/mm3 Hgb 8.1 L (11.6-15.3) gm/dL Hct 23.8 L (35.0-46.0) % Plt Count 340 (150-450) th/mm3 Neut # (Auto) 7.1 (1.8-7.7) th/mm3 Lymph # (Auto) 1.7 (1.0-4.8) th/mm3 [place] # (Auto) 0.6 (0.0-0.9) th/mm3 Eos # (Auto) 0.3 (0.0-0.4) th/mm3 Baso # (Auto) 0.0 (0.0-0.2) th/mm3 Comprehensive Metabolic Panel 12/19/17 Range/Units 04:14 Sodium 139 (136-145) meq/L Potassium 3.8 (3.5-5.1) meq/L Chloride 105 (98-107) meq/L Carbon Dioxide 23.8 (21.0-32.0) meq/L BUN 6 L (7-18) mg/dL Creatinine 0.75 (0.50-1.00) mg/dL Calcium 8.4 L (8.5-10.1) mg/dL AST 36 (15-37) U/L ALT 33 (10-53) U/L Alkaline Phosphatase 208 H (45-117) U/L Total Protein 5.6 L (6.4-8.2) g/dL Albumin 2.3 L (3.4-5.0) g/dL Intake and Output 12/19/17 12/20/17 12/20/17 22:59 06:59 14:59 Intake Total 1100 / 1100 480 / 480 350 / 350 Output Total 800 / 800 1650 / 1650 Balance 300 / 300 -1170 / -1170 350 / 350 Intake: IV 350 / 350 Levaquin 500 mg Premix Inj 500 100 / 100 mg In 100 ml @ 100 mls/hr IV. SIG Q24H [facility]I Rx#:[id number] NS Inj 250 ML @ 15 mls/hr IV. 250 / 250 SIG ONCE [facility]I Rx#:[id number] Oral 600 / 600 480 / 480 Other 100 / 100 Rbc As-3 Leukoreduced Unit 100 / 100 [id number] Intake (Blood Product) Amt 400 / 400 Rbc As-3 Leukoreduced Unit 400 / 400 [id number] Output: Urine 800 / 800 1650 / 1650 Other: Date of Last Bowel Movement 12/20/17 12/20/17 # Bowel Movements 1 Weight 73 kg - Imaging and Cardiology Imaging: Impressions Carotid Doppler Study 12/18/17 15:22 CONCLUSION: 1. Right Internal Carotid Artery: Moderate plaque without hemodynamically significant stenosis. 2. Left Internal Carotid Artery: Moderate plaque without hemodynamically significant stenosis. Chest X-Ray 12/18/17 15:22 CONCLUSION: Left lower lobe pneumonia. Treatment and follow-up to resolution. Chest CT 12/19/17 00:00 CONCLUSION: 1. 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 2. 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 3. 50-60% stenosis of the left renal artery. 4. Cholelithiasis. 5. Small bilateral pleural effusions. Assessment and Plan - Plan A/P severe - stable, Issac Wynne and I all agree she will need rehab and recovery prior to her AVR anemia- pneumonia-
[2017-12-20] MEDS: Pantoprazole Sodium 20 MG DR Tablet PO SCH (12:26)
[2017-12-20] MEDS: Ferrous Sulfate 325 MG Tablet PO SCH ×2 (12:28→16:36)
[2017-12-20] MEDS: Levofloxacin 500 mg Premix Inj 500 MG/100 ML PIGGYBACK IV.SIG SCH (13:50)
[2017-12-20 14:38] LABS: Hematocrit 31.3 % (35.0-46.0); Hemoglobin 10.7 gm/dL (11.6-15.3); Mean Corpuscular Hemoglobin 31.4 pg (27.0-34.0); Mean Corpuscular Volume 92.3 fL (80.0-100.0); Mean Platelet Volume 7.8 fL (7.0-11.0); Platelet Count 389 th/mm3 (150-450); Red Cell Distribution Width 19.7 % (11.6-17.2); White Blood Count 12.3 th/mm3 (4.0-11.0)
[2017-12-21] MEDS: Levothyroxine 112 MCG Tablet PO SCH (06:24)
[2017-12-21] MEDS: Enoxaparin Inj 40 MG/0.4 ML Syringe SQ SCH (08:56)
[2017-12-21] MEDS: Pantoprazole Sodium 20 MG DR Tablet PO SCH (08:57)
[2017-12-21] MEDS: Collagenase Oint 30 GM Tube TOPICAL SCH (08:58)
--- NOTE | 2017-12-21 09:26 | P.PNCV ---
- Note Subjective/Hospital Course: 77-year-old female patient of Dr. Gomez, also Dr. David Archer, who was transferred from [facility] just recently, sustained a hip fracture, underwent right intertrochanteric fracture repair by Dr. Sanchez 10 days ago after sustaining a fall at home where she tripped and fell on the ground getting out of her car. There was no loss of consciousness, nor did she hit her head. During the course of her hospital stay, she apparently had an episode of some hypotension, shortness of breath, which led to an echocardiogram , which showed severe aortic stenosis with a valve area of 0.52 cm2. Peak gradient of 156. The left atrium was dilated. Some trivial mitral regurgitation, trace tricuspid regurgitation. The patient then underwent cardiac catheterization, which showed a 60% to 70% stenosis in the mid LAD. The RCA had a 50% stenosis in the midvessel. The distal portion had a 60% stenosis, mild pulmonary hypertension, right-sided heart pressures included RA pressures of 7/4, PA pressure 26/11 with a mean of 19, wedge pressure 18/15 with a mean of 12, SVR of 1840. Cardiac output of 4 liters per minute, valve area by catheterization showed a 0.4 cm2. She has been transferred to our facility to be evaluated for aortic valve replacement versus transcatheter aortic valve replacement, also with coronary disease, 2 vessels. PAST MEDICAL HISTORY: Includes history of rheumatic heart fever, severe aortic stenosis, hypertension, hyperlipidemia, osteoporosis, urinary incontinence, hypothyroidism, gout, gastroesophageal reflux disease, history of remote cerebrovascular accident in the past. CT chest showed left lower lobe pulmonary nodule that was recommended outpatient CT followup. 12/19 pt feels fair HGB 8.1 for RBC today await TAVR CTA will dc midodrine BP stable OOB with PT / activity for full weight bearing ok per Dr Sanchez ( ortho at [facility] ) Hospitalist consult agree with rehab placement appreciate wound care 12/20 Clinically and hemodynamically stable and doing well Again discussed plan and options with her in detail including interim rehab prior to aortic valve procedure May need intervention to the LAD as well prior to her TAVR Appreciate consultants input 12/21 Clinical stable Awaiting [place] inpatient rehabilitation evaluation Tums for GERD Objective: Vital Signs - 24 hr 12/20/17 10:00 12/20/17 11:00 12/20/17 12:00 Temperature Pulse Rate 80 85 102 H Respiratory Rate Blood Pressure Pulse Oximetry 12/20/17 12:15 12/20/17 13:00 12/20/17 13:23 Temperature 97.8 F Pulse Rate 94 H 92 H Respiratory Rate 18 18 Blood Pressure 125/71 Pulse Oximetry 96 12/20/17 14:00 12/20/17 14:48 12/20/17 15:00 Temperature 98.3 F Pulse Rate 86 96 H 86 Respiratory Rate 18 Blood Pressure 115/71 Pulse Oximetry 99 12/20/17 16:00 12/20/17 17:00 12/20/17 18:00 Temperature Pulse Rate 84 86 92 H Respiratory Rate Blood Pressure Pulse Oximetry 12/20/17 19:00 12/20/17 20:00 12/20/17 20:48 Temperature 97.2 F L Pulse Rate 110 H 92 H Respiratory Rate 18 18 Blood Pressure 120/74 Pulse Oximetry 95 12/20/17 21:00 12/20/17 22:00 12/20/17 23:00 Temperature 98.4 F Pulse Rate 90 86 95 H Respiratory Rate 16 Blood Pressure 110/64 Pulse Oximetry 93 L 12/21/17 00:00 12/21/17 01:00 12/21/17 02:00 Temperature Pulse Rate 86 89 77 Respiratory Rate Blood Pressure Pulse Oximetry 12/21/17 03:00 12/21/17 04:00 12/21/17 05:00 Temperature 98.6 F Pulse Rate 80 79 83 Respiratory Rate 18 Blood Pressure 105/65 Pulse Oximetry 93 L 12/21/17 06:00 12/21/17 07:00 12/21/17 08:00 Temperature 98.5 F Pulse Rate 80 93 H 84 Respiratory Rate 18 Blood Pressure 108/64 Pulse Oximetry 94 L 12/21/17 09:00 Temperature Pulse Rate 86 Respiratory Rate Blood Pressure Pulse Oximetry Result Diagrams: 12/20/17 13:30 12/19/17 04:14 - Plan (1) S/P hip replacement Plan: PT/OT full weight bearing (2) Blood loss anemia Plan: for PRBC today quaic stool (3) HCAP (healthcare-associated pneumonia) Plan: add levaquin x 5 days (4) Aortic valve stenosis Plan: on ASA TAVR work up
[2017-12-21] MEDS: Ferrous Sulfate 325 MG Tablet PO SCH ×2 (12:27→17:31)
[2017-12-21] MEDS: Levofloxacin 500 mg Premix Inj 500 MG/100 ML PIGGYBACK IV.SIG SCH (13:59)
[2017-12-22] MEDS: Levothyroxine 112 MCG Tablet PO SCH (05:08)
[2017-12-22] MEDS ORDERED: Allopurinol 300 MG Tablet PO SCH (09:00)
[2017-12-22] MEDS: Pantoprazole Sodium 20 MG DR Tablet PO SCH (09:11)
[2017-12-22] MEDS: Enoxaparin Inj 40 MG/0.4 ML Syringe SQ SCH (09:11)
[2017-12-22] MEDS: Collagenase Oint 30 GM Tube TOPICAL SCH (09:11)
--- NOTE | 2017-12-22 10:33 | P.PNCV ---
- Note Subjective/Hospital Course: 77-year-old female patient of Dr. Gomez, also Dr. David Archer, who was transferred from [facility] just recently, sustained a hip fracture, underwent right intertrochanteric fracture repair by Dr. Sanchez 10 days ago after sustaining a fall at home where she tripped and fell on the ground getting out of her car. There was no loss of consciousness, nor did she hit her head. During the course of her hospital stay, she apparently had an episode of some hypotension, shortness of breath, which led to an echocardiogram , which showed severe aortic stenosis with a valve area of 0.52 cm2. Peak gradient of 156. The left atrium was dilated. Some trivial mitral regurgitation, trace tricuspid regurgitation. The patient then underwent cardiac catheterization, which showed a 60% to 70% stenosis in the mid LAD. The RCA had a 50% stenosis in the midvessel. The distal portion had a 60% stenosis, mild pulmonary hypertension, right-sided heart pressures included RA pressures of 7/4, PA pressure 26/11 with a mean of 19, wedge pressure 18/15 with a mean of 12, SVR of 1840. Cardiac output of 4 liters per minute, valve area by catheterization showed a 0.4 cm2. She has been transferred to our facility to be evaluated for aortic valve replacement versus transcatheter aortic valve replacement, also with coronary disease, 2 vessels. PAST MEDICAL HISTORY: Includes history of rheumatic heart fever, severe aortic stenosis, hypertension, hyperlipidemia, osteoporosis, urinary incontinence, hypothyroidism, gout, gastroesophageal reflux disease, history of remote cerebrovascular accident in the past. CT chest showed left lower lobe pulmonary nodule that was recommended outpatient CT followup. 12/19 pt feels fair HGB 8.1 for RBC today await TAVR CTA will dc midodrine BP stable OOB with PT / activity for full weight bearing ok per Dr Sanchez ( ortho at [facility] ) Hospitalist consult agree with rehab placement appreciate wound care 12/20 Clinically and hemodynamically stable and doing well Again discussed plan and options with her in detail including interim rehab prior to aortic valve procedure May need intervention to the LAD as well prior to her TAVR Appreciate consultants input 12/21 Clinical stable Awaiting [place] inpatient rehabilitation evaluation Tums for GERD 12/22 doing well VSS await rehab placement also eval by Dr Mustafa then bring back for TAVR at later date Objective: Vital Signs - 24 hr 12/21/17 11:00 12/21/17 12:00 12/21/17 13:00 Temperature 98.6 F Pulse Rate 86 88 85 Respiratory Rate 18 Blood Pressure 118/72 Pulse Oximetry 93 L 12/21/17 14:00 12/21/17 15:00 12/21/17 16:00 Temperature 98.7 F Pulse Rate 88 99 H 92 H Respiratory Rate 18 Blood Pressure 117/73 Pulse Oximetry 94 L 12/21/17 17:00 12/21/17 18:00 12/21/17 19:00 Temperature 97.8 F Pulse Rate 88 88 86 Respiratory Rate 16 Blood Pressure 113/69 Pulse Oximetry 97 12/21/17 20:00 12/21/17 21:00 12/21/17 22:00 Temperature Pulse Rate 75 74 80 Respiratory Rate Blood Pressure Pulse Oximetry 12/21/17 23:00 12/22/17 00:00 12/22/17 01:00 Temperature 97.8 F Pulse Rate 70 81 93 H Respiratory Rate 16 Blood Pressure 113/74 Pulse Oximetry 96 12/22/17 02:00 12/22/17 03:00 12/22/17 04:00 Temperature 98.1 F Pulse Rate 92 H 83 90 Respiratory Rate 16 Blood Pressure 108/68 Pulse Oximetry 95 12/22/17 05:00 12/22/17 05:57 12/22/17 07:00 Temperature 98.2 F Pulse Rate 72 74 86 Respiratory Rate 16 Blood Pressure 104/67 Pulse Oximetry 95 12/22/17 08:00 12/22/17 09:00 12/22/17 10:00 Temperature Pulse Rate 85 87 83 Respiratory Rate Blood Pressure Pulse Oximetry GENERAL: A&O x 3 SKIN: Warm and dry. right hip incision intact and well approximated , coccyx dressing in place HEAD: Normocephalic. EYES: No scleral icterus. No injection or drainage. NECK: Supple, trachea midline. No JVD or lymphadenopathy. CARDIOVASCULAR: Regular rate and rhythm without 3/6 systolic murmurs, no gallops, or rubs. RESPIRATORY: Breath sounds equal bilaterally. No accessory muscle use. GASTROINTESTINAL: Abdomen soft, non-tender, nondistended. MUSCULOSKELETAL: No cyanosis, or edema. BACK: Nontender without obvious deformity. No CVA tenderness. Result Diagrams: 12/20/17 13:30 12/19/17 04:14 - Plan (1) S/P hip replacement Plan: PT/OT full weight bearing (2) Blood loss anemia Plan: s/p PRBC quaic stool (3) HCAP (healthcare-associated pneumonia) Plan: add levaquin x 5 days (4) Aortic valve stenosis Plan: on ASA TAVR work up in progress plan to dc to rehab and bring back for procedure
[2017-12-22 12:15] LABS: White Blood Count 8.2 th/mm3 (4.0-11.0)
[2017-12-22 12:16] LABS: Baso % (Auto) 0.4 % (0.0-2.0); Eos # (Auto) 0.2 th/mm3 (0.0-0.4); Eos % (Auto) 2.2 % (0.0-4.0); Hemoglobin 10.7 gm/dL (11.6-15.3); Lymph # (Auto) 1.1 th/mm3 (1.0-4.8); Mean Corpuscular HGB Conc 34.6 % (32.0-36.0); Mean Corpuscular Hemoglobin 31.6 pg (27.0-34.0); Mean Corpuscular Volume 91.2 fL (80.0-100.0); Mono # (Auto) 0.7 th/mm3 (0.0-0.9); Mono % (Auto) 8.7 % (0.0-8.0); Neut # (Auto) 6.1 th/mm3 (1.8-7.7); Neut % (Auto) 74.7 % (16.0-70.0); Platelet Count 370 th/mm3 (150-450); Red Cell Distribution Width 19.4 % (11.6-17.2)
[2017-12-22 12:41] LABS: Calcium 8.9 mg/dL (8.5-10.1); Carbon Dioxide 27.1 meq/L (21.0-32.0); Potassium 3.7 meq/L (3.5-5.1)
[2017-12-22] MEDS: Ferrous Sulfate 325 MG Tablet PO SCH ×2 (13:53→17:17)
[2017-12-22] MEDS: Levofloxacin 500 mg Premix Inj 500 MG/100 ML PIGGYBACK IV.SIG SCH (13:54)
--- NOTE | 2017-12-22 15:21 | P.CON ---
History of Present Illness Service: CT Surgery Consult date: 12/22/17 Requesting Physician: Cuco Valero Reason for Consult: Severe symptomatic aortic stenosis Primary Care Provider: UNKNOWN Chief Complaint: Shortness of breath History of Present Illness: 77-year-old female patient Dr. David Archer, who was transferred from [facility] after having her hip repaired s/p fracture following a fall During the course of her hospital stay, she apparently had an episode of some hypotension, shortness of breath, which led to an echocardiogram, which showed severe aortic stenosis with a valve area of 0.52 cm2. The patient then underwent cardiac catheterization, which showed 2 vessel CAD ivlving the LAD and RCA systems. She was transferred to [place] for further evaluation and management. PAST MEDICAL HISTORY: Includes history of rheumatic heart fever, severe aortic stenosis, hypertension, hyperlipidemia, osteoporosis, urinary incontinence, hypothyroidism, gout, gastroesophageal reflux disease, history of remote cerebrovascular accident in the past. CT chest showed left lower lobe pulmonary nodule that was recommended outpatient CT followup. PAST SURGICAL HISTORY: Right hip repair, recent also tonsillectomy. FAMILY HISTORY: Father at age 80 from diabetes. Mother from a stroke. SOCIAL HISTORY: The patient is , lives with her and her son lives with them. Prior to her fall and fractured hip, she was driving, cooking, walking half a mile per day. She did smoke for about 25 years, quit 20 years ago, 2 drinks per day. Review of Systems Constitutional: Reports fatigue, Reports lack of energy, Denies anorexia, Denies body ache(s), Denies chills, Denies daytime sleepiness, Denies excessive sweating, Denies fever(s), Denies headache(s), Denies increased appetite, Denies malaise, Denies night sweats, Denies weakness, Denies weight gain, Denies weight loss, Denies other Eyes: Denies blind spots, Denies blurry vision, Denies bulging eyes, Denies change in vision, Denies double vision, Denies discharge, Denies dry eyes, Denies floaters, Denies irritation, Denies itchy eyes, Denies loss of vision, Denies pain, Denies requires corrective lenses, Denies sensitivity to light, Denies other Ears, Nose, Mouth, and Throat: Denies abnormal hearing, Denies bleeding gums, Denies bad breath, Denies change in voice, Denies dental pain, Denies difficulty swallowing, Denies dizziness, Denies dry mouth, Denies ear discharge , Denies ear pain, Denies facial pain, Denies headache(s), Denies hearing loss, Denies hoarseness, Denies lip swelling, Denies nosebleed, Denies mouth lesions, Denies mouth pain, Denies nasal congestion, Denies nasal discharge, Denies nasal obstruction, Denies nasal trauma, Denies neck lump, Denies neck pain, Denies nose pain, Denies pain with swallowing, Denies poor balance, Denies post nasal drip, Denies ringing in the ears, Denies sinus pain, Denies sinus pressure , Denies sore throat, Denies throat swelling, Denies tongue swelling, Denies other Cardiovascular: Reports shortness of breath, Reports shortness of breath with activity, Reports shortness of breath when lying down, Denies chest pain, Denies chest pain at rest, Denies chest pain with activity, Denies excessive sweating, Denies fainting, Denies fast heart rate, Denies foot swelling, Denies generalized swelling, Denies irregular heart rhythm, Denies leg pain with activity, Denies leg sores, Denies leg swelling, Denies lightheadedness, Denies radiating jaw, neck or arm pain, Denies rapid, pounding, or irregular heartbeat , Denies shortness of breath causing sudden awakening, Denies slow heart rate, Denies other Respiratory: Reports cough, Reports shortness of breath with activity, Denies change in phlegm color, Denies chest congestion, Denies coughing up blood, Denies excessive phlegm production, Denies pain on inspiration, Denies pain with cough, Denies shortness of breath, Denies snoring, Denies stridor, Denies wheezing, Denies other Gastrointestinal: Denies abdominal pain, Denies belching, Denies black, tarry stools, Denies bloating, Denies bright, red blood in stools, Denies change in bowel habits, Denies constant urge to pass stool, Denies change in stools, Denies coffee ground vomit, Denies constipation, Denies cramping, Denies difficulty swallowing, Denies excessive passing of gas, Denies feeling full early, Denies heartburn, Denies incontinent of stools, Denies loose stools, Denies nausea, Denies pain with swallowing, Denies vomiting, Denies vomiting blood, Denies other Genitourinary: Denies abnormal periods, Denies abnormal vaginal bleeding, Denies absent period, Denies bleeding between periods, Denies blood in urine, Denies difficulty starting urination, Denies difficulty urinating, Denies dribbling after urination, Denies frequent nighttime urination, Denies genital itching, Denies genital lesions, Denies heavy periods, Denies hot flashes, Denies light periods, Denies nipple discharge, Denies painful intercourse, Denies painful periods, Denies painful urination, Denies pelvic pain, Denies prolapse symptoms, Denies sexual problems, Denies side pain, Denies urinary incontinence, Denies urinary urgency, Denies vaginal discharge, Denies vaginal dryness, Denies vaginal odor, Denies vaginal itching, Denies other Musculoskeletal: Reports body aches, Reports joint pain, Reports joint swelling , Denies abnormal walking, Denies back pain, Denies decreased muscle mass, Denies deformity, Denies limited joint movement, Denies loss of height, Denies muscle cramps, Denies muscle weakness, Denies neck pain, Denies numbness, Denies radiating pain into limb, Denies stiffness, Denies tingling, Denies other Skin/Breast: Denies acne, Denies bleeding lesions, Denies boil, Denies breast swelling, Denies breast skin changes, Denies breast pain, Denies breast lump, Denies change in breast shape, Denies change in hair, Denies change in skin color, Denies changing lesions, Denies dry skin, Denies excessive hair growth, Denies hair loss, Denies itching, Denies lesions, Denies nail changes, Denies new lesions, Denies nipple discharge, Denies non-healing lesions, Denies redness , Denies sensitivity to light, Denies rash, Denies skin pain, Denies skin ulcer , Denies sores, Denies stretch griffin, Denies unusual bruising, Denies wounds, Denies yellowing of the skin, Denies other Neurologic: Denies abnormal hearing, Denies abnormal movements, Denies abnormal speech, Denies abnormal walking, Denies behavioral changes, Denies burning sensations, Denies confusion, Denies dizziness, Denies fainting, Denies frequent falls, Denies headache(s), Denies lack of coordination, Denies localized weakness, Denies loss of vision, Denies memory loss, Denies numbness, Denies other visual disturbances, Denies radiating pain, Denies restless legs, Denies convulsions, Denies seizure-like activity, Denies sensory deficit, Denies tingling, Denies tingling/numbness/burning sensations, Denies tremor(s), Denies unsteadiness, Denies weakness, Denies other Psychiatric: Denies abnormal sleep pattern, Denies anxiety, Denies behavioral changes, Denies change in appetite, Denies change in sex drive, Denies confusion , Denies depression, Denies difficulty concentrating, Denies hearing things others do not hear, Denies hopelessness, Denies irritability, Denies lack of enjoyment, Denies memory loss, Denies mood swings, Denies panic attacks, Denies paranoia, Denies seeing things others do not see, Denies sensing things others do not sense, Denies tactile hallucinations, Denies thoughts of hurting/killing others, Denies thoughts of hurting/killing yourself, Denies other Endocrine: Denies cold intolerance, Denies excessive sweating, Denies flushing, Denies heat intolerance, Denies increased hunger, Denies increased thirst, Denies increased urination, Denies rapid, pounding, or irregular heartbeat, Denies other Hematologic/Lymphatic: Denies easy bleeding, Denies easy bruising, Denies enlarged lymph nodes, Denies other PMFSH - Medical History Medical History: Medical History (Last Updated 12/22/17 @ 12:28 by Zuleyma Boone) Acute blood loss anemia Blood loss anemia HCAP (healthcare-associated pneumonia) Stroke - Surgical History Surgical History: Surgical History (Last Reviewed 12/22/17 @ 08:25 by Dawson Pratt, PT) S/P hip replacement - Tobacco History Tobacco Use In Past 30 Days: No - Alcohol History How Often Do You Have a Drink Containing Alcohol: Monthly or less - Substance Use History Substance History: No History of Abuse Medications and Allergies Active Medications: Active Medications Acetaminophen (Tylenol) 650 mg PO Q4H PRN PRN Reason: Temp > 100.4 Last Admin: 12/19/17 18:31 Dose: 650 mg Hydrocodone Bitart/Acetaminophen ([place] 5/325) 1 tab PO Q4H PRN PRN Reason: Acute Pain Last Admin: 12/21/17 21:53 Dose: 1 tab Al Hydroxide/Mg Hydroxide (Milk Of Leslie Dolan) 30 ml PO DAILY PRN PRN Reason: SEVERE CONSITIPATION Allopurinol (Zyloprim) 300 mg PO MoWeFr [facility] Last Admin: 12/22/17 09:11 Dose: 300 mg Aspirin (Ecotrin) 81 mg PO DAILY [facility] Last Admin: 12/22/17 09:11 Dose: 81 mg Calcium Carbonate (Tums Chew) 500 mg PO Q6H PRN PRN Reason: DYSPEPSIA Collagenase (Santyl Oint) 1 applicatio TOPICAL DAILY [facility] Last Admin: 12/22/17 09:11 Dose: 1 applicatio Docusate Sodium (Colace) 100 mg PO BID PRN PRN Reason: CONSTIPATION Enoxaparin Sodium (Lovenox Inj) 40 mg SQ DAILY [facility] Last Admin: 12/22/17 09:11 Dose: 40 mg Ferrous Sulfate (Ferosul) 325 mg PO BID@1200,1700 [facility] Last Admin: 12/22/17 13:53 Dose: 325 mg Levofloxacin/Dextrose (Levaquin 500 Mg Premix Inj) 500 mg in 100 mls @ 100 mls/ hr IV.SIG Q24H [facility] Stop: 12/24/17 13:59 Last Admin: 12/22/17 13:54 Dose: 100 mls/hr Levothyroxine Sodium (Synthroid) 112 mcg PO DAILY@0600 [facility] Last Admin: 12/22/17 05:08 Dose: 112 mcg Ondansetron HCl (Zofran Inj) 4 mg IV.PUSH Q6H PRN PRN Reason: NAUSEA Last Admin: 12/20/17 05:49 Dose: 4 mg Oxybutynin Chloride (Ditropan) 5 mg PO TID [facility] Last Admin: 12/22/17 13:53 Dose: 5 mg Pantoprazole Sodium (Protonix) 20 mg PO DAILY [facility] Last Admin: 12/22/17 09:11 Dose: 20 mg Pravastatin Sodium (Pravachol) 80 mg PO DAILY [facility] Last Admin: 12/22/17 09:11 Dose: 80 mg Sodium Chloride (Ns Flush) 2 ml IV.FLUSH BID [facility] Last Admin: 12/22/17 09:11 Dose: 2 ml Sodium Chloride (Ns Flush) 2 ml IV.FLUSH PRN PRN PRN Reason: FLUSH AFTER USING IV ACCESS Allergies Allergy/AdvReac Type Severity Reaction Status Date / Time No Known Allergies Allergy Verified 12/18/17 15:58 Home Medications Medication Instructions Recorded Confirmed Type Vitamin D2 12/18/17 12/18/17 History acetaminophen 650 mg PO Q4H PRN 12/18/17 12/18/17 History alendronate 70 mg PO QWEEK 12/18/17 12/18/17 History allopurinol 300 mg PO DAILY 12/18/17 12/18/17 History amlodipine 5 mg PO DAILY 12/18/17 12/18/17 History docusate sodium 100 mg PO PRN 12/18/17 12/18/17 History enoxaparin 40 mg SUBCUT DAILY 12/18/17 12/18/17 History levothyroxine 112 mcg PO DAILY 12/18/17 12/18/17 History lisinopril 80 mg PO BID 12/18/17 12/18/17 History midodrine 10 mg PO DAILY 12/18/17 12/18/17 History morphine (PF) in 0.9 % NaCl 2 mg IV Q4H PRN 12/18/17 12/18/17 History omeprazole 20 mg PO DAILY 12/18/17 12/18/17 History ondansetron HCl (PF) 4 mg IV PRN 12/18/17 12/18/17 History oxybutynin chloride 5 mg PO TID 12/18/17 12/18/17 History pravastatin 80 mg PO DAILY 12/18/17 12/18/17 History Physical Exam Vital signs: Vital Signs 12/21/17 16:00 12/21/17 17:00 12/21/17 18:00 Temperature Pulse Rate 92 H 88 88 Respiratory Rate Blood Pressure Pulse Oximetry 12/21/17 19:00 12/21/17 20:00 12/21/17 21:00 Temperature 97.8 F Pulse Rate 86 75 74 Respiratory Rate 16 Blood Pressure 113/69 Pulse Oximetry 97 12/21/17 22:00 12/21/17 23:00 12/22/17 00:00 Temperature 97.8 F Pulse Rate 80 70 81 Respiratory Rate 16 Blood Pressure 113/74 Pulse Oximetry 96 12/22/17 01:00 12/22/17 02:00 12/22/17 03:00 Temperature 98.1 F Pulse Rate 93 H 92 H 83 Respiratory Rate 16 Blood Pressure 108/68 Pulse Oximetry 95 12/22/17 04:00 12/22/17 05:00 12/22/17 05:57 Temperature Pulse Rate 90 72 74 Respiratory Rate Blood Pressure Pulse Oximetry 12/22/17 07:00 12/22/17 08:00 12/22/17 09:00 Temperature 98.2 F Pulse Rate 86 85 87 Respiratory Rate 16 Blood Pressure 104/67 Pulse Oximetry 95 12/22/17 10:00 12/22/17 11:00 12/22/17 12:00 Temperature 98.6 F Pulse Rate 83 82 100 H Respiratory Rate 16 Blood Pressure 118/69 Pulse Oximetry 94 L 12/22/17 13:00 12/22/17 14:00 Temperature Pulse Rate 89 88 Respiratory Rate Blood Pressure Pulse Oximetry Intake & Output 12/21/17 12/22/17 12/22/17 18:59 06:59 18:59 Intake Total 1125 / 1125 480 / 480 Output Total 850 / 850 500 / 500 Balance 275 / 275 -20 / -20 Weight 73.5 kg Intake: IV 100 / 100 Levaquin 500 mg Premix Inj 500 100 / 100 mg In 100 ml @ 100 mls/hr IV. SIG Q24H [facility] Rx#:[id number] Oral 1025 / 1025 480 / 480 Output: Urine 850 / 850 500 / 500 Other: Date of Last Bowel Movement 12/20/17 12/20/17 12/21/17 # Bowel Movements 0 - Constitutional no acute distress - Routine HEENT Exam Head: Present: normocephalic, atraumatic Eye: Present: EOMI, PERRL, normal accommodation ENT: Present: mucous membranes moist - Routine Neck Exam Present: supple, full ROM - Routine Respiratory Exam Present: CTA bilaterally - Routine Cardiovascular Exam Present: RRR, S1, S2 - Detailed Cardiovascular Exam: Murmur 1 Type: Present: holosystolic Location: Present: right sternal border Characteristics: Present: harsh - Routine Abdominal Exam Present: soft, normoactive bowel sounds. Absent: tenderness, guarding, firm, rigid, organomegaly, mass, hernia, bruit - Routine Extremities Exam Present: pulses intact. Absent: cyanosis, clubbing, edema, full ROM - Routine Skin Exam Present: intact - Routine Neurological Exam Present: alert, oriented X3, CN II-XII intact Assessment and Plan - Assessment (1) Blood loss anemia Code(s): E03.9 - Hypothyroidism, unspecified Status: Acute (2) S/P hip replacement Code(s): I35.0 - Nonrheumatic aortic (valve) stenosis Status: Acute (3) HCAP (healthcare-associated pneumonia) Code(s): E78.5 - Hyperlipidemia, unspecified Status: Acute (4) Aortic valve stenosis Code(s): I35.0 - Nonrheumatic aortic (valve) stenosis Status: Acute (5) Diastolic heart failure Code(s): I63.9 - Cerebral infarction, unspecified Status: Acute - Plan 77yo female presents with acute diastolic heart failure secondary to severe with SUMANTH ~0.52cm2. She recently underwent ORIF for a hip fracture and is somewhat limited in her ability to accomplish her ADLs and ambulate. She is frail as a result and her STS risk for mortality is ~3-4% plaving her at intermediate risk. Recommend TAVR. (4) Aortic valve stenosis Qualifiers: Cardiac valve disease etiology: rheumatic Qualified Code(s): I06.0 - Rheumatic aortic stenosis (5) Diastolic heart failure Qualifiers: Heart failure chronicity: acute on chronic Qualified Code(s): I50.33 - Acute on chronic diastolic (congestive) heart failure
[2017-12-23] MEDS: Levothyroxine 112 MCG Tablet PO SCH (05:56)
[2017-12-23] MEDS: Pantoprazole Sodium 20 MG DR Tablet PO SCH (08:33)
[2017-12-23] MEDS: Enoxaparin Inj 40 MG/0.4 ML Syringe SQ SCH (08:33)
[2017-12-23] MEDS: Collagenase Oint 30 GM Tube TOPICAL SCH (08:34)
--- NOTE | 2017-12-23 09:47 | P.CONCA ---
History of Present Illness Primary Care Provider: UNKNOWN Chief Complaint: Shortness of breath PMFSH - Medical History Medical History: Medical History (Last Updated 12/22/17 @ 12:28 by Zuleyma Boone) Acute blood loss anemia Blood loss anemia Diastolic heart failure HCAP (healthcare-associated pneumonia) - Surgical History Surgical History: Surgical History (Last Reviewed 12/22/17 @ 08:25 by Dawson Pratt, PT) S/P hip replacement - Tobacco History Tobacco Use In Past 30 Days: No - Alcohol History How Often Do You Have a Drink Containing Alcohol: Monthly or less - Substance Use History Substance History: No History of Abuse Medications and Allergies Active Medications: Active Medications Acetaminophen (Tylenol) 650 mg PO Q4H PRN PRN Reason: Temp > 100.4 Last Admin: 12/19/17 18:31 Dose: 650 mg Hydrocodone Bitart/Acetaminophen ([place] 5/325) 1 tab PO Q4H PRN PRN Reason: Acute Pain Last Admin: 12/22/17 20:04 Dose: 1 tab Al Hydroxide/Mg Hydroxide (Milk Of Leslie Dolan) 30 ml PO DAILY PRN PRN Reason: SEVERE CONSITIPATION Allopurinol (Zyloprim) 300 mg PO MoWeFr [facility] Last Admin: 12/22/17 09:11 Dose: 300 mg Aspirin (Ecotrin) 81 mg PO DAILY [facility] Last Admin: 12/23/17 08:34 Dose: 81 mg Calcium Carbonate (Tums Chew) 500 mg PO Q6H PRN PRN Reason: DYSPEPSIA Collagenase (Santyl Oint) 1 applicatio TOPICAL DAILY [facility] Last Admin: 12/23/17 08:34 Dose: 1 applicatio Docusate Sodium (Colace) 100 mg PO BID PRN PRN Reason: CONSTIPATION Enoxaparin Sodium (Lovenox Inj) 40 mg SQ DAILY [facility] Last Admin: 12/23/17 08:33 Dose: 40 mg Ferrous Sulfate (Ferosul) 325 mg PO BID@1200,1700 [facility] Last Admin: 12/22/17 17:17 Dose: 325 mg Levofloxacin/Dextrose (Levaquin 500 Mg Premix Inj) 500 mg in 100 mls @ 100 mls/ hr IV.SIG Q24H [facility] Stop: 12/24/17 13:59 Last Infusion: 12/22/17 15:00 Dose: Infused Levothyroxine Sodium (Synthroid) 112 mcg PO DAILY@0600 [facility] Last Admin: 12/23/17 05:56 Dose: 112 mcg Ondansetron HCl (Zofran Inj) 4 mg IV.PUSH Q6H PRN PRN Reason: NAUSEA Last Admin: 12/20/17 05:49 Dose: 4 mg Oxybutynin Chloride (Ditropan) 5 mg PO TID [facility] Last Admin: 12/23/17 08:34 Dose: 5 mg Pantoprazole Sodium (Protonix) 20 mg PO DAILY [facility] Last Admin: 12/23/17 08:33 Dose: 20 mg Pravastatin Sodium (Pravachol) 80 mg PO DAILY [facility] Last Admin: 12/23/17 08:34 Dose: 80 mg Sodium Chloride (Ns Flush) 2 ml IV.FLUSH BID [facility] Last Admin: 12/23/17 08:34 Dose: 2 ml Sodium Chloride (Ns Flush) 2 ml IV.FLUSH PRN PRN PRN Reason: FLUSH AFTER USING IV ACCESS Allergies Allergy/AdvReac Type Severity Reaction Status Date / Time No Known Allergies Allergy Verified 12/18/17 15:58 Home Medications Medication Instructions Recorded Confirmed Type Vitamin D2 12/18/17 12/18/17 History acetaminophen 650 mg PO Q4H PRN 12/18/17 12/18/17 History alendronate 70 mg PO QWEEK 12/18/17 12/18/17 History allopurinol 300 mg PO DAILY 12/18/17 12/18/17 History amlodipine 5 mg PO DAILY 12/18/17 12/18/17 History docusate sodium 100 mg PO PRN 12/18/17 12/18/17 History enoxaparin 40 mg SUBCUT DAILY 12/18/17 12/18/17 History levothyroxine 112 mcg PO DAILY 12/18/17 12/18/17 History lisinopril 80 mg PO BID 12/18/17 12/18/17 History midodrine 10 mg PO DAILY 12/18/17 12/18/17 History morphine (PF) in 0.9 % NaCl 2 mg IV Q4H PRN 12/18/17 12/18/17 History omeprazole 20 mg PO DAILY 12/18/17 12/18/17 History ondansetron HCl (PF) 4 mg IV PRN 12/18/17 12/18/17 History oxybutynin chloride 5 mg PO TID 12/18/17 12/18/17 History pravastatin 80 mg PO DAILY 12/18/17 12/18/17 History Exam Vital signs: Vital Signs 12/22/17 10:00 12/22/17 11:00 12/22/17 12:00 Temperature 98.6 F Pulse Rate 83 82 100 H Respiratory Rate 16 Blood Pressure 118/69 Pulse Oximetry 94 L 12/22/17 13:00 12/22/17 14:00 12/22/17 15:00 Temperature 98.6 F Pulse Rate 89 88 94 H Respiratory Rate 17 Blood Pressure 118/79 Pulse Oximetry 94 L 12/22/17 16:00 12/22/17 17:00 12/22/17 18:00 Temperature Pulse Rate 90 95 H 93 H Respiratory Rate Blood Pressure Pulse Oximetry 12/22/17 19:00 12/22/17 20:00 12/22/17 21:00 Temperature 98.0 F Pulse Rate 87 86 86 Respiratory Rate 16 Blood Pressure 126/74 Pulse Oximetry 95 12/22/17 22:00 12/22/17 23:00 12/23/17 00:00 Temperature 98.1 F Pulse Rate 90 79 74 Respiratory Rate 16 Blood Pressure 107/67 Pulse Oximetry 94 L 12/23/17 01:00 12/23/17 02:00 12/23/17 03:00 Temperature 98.2 F Pulse Rate 82 90 80 Respiratory Rate 16 Blood Pressure 103/64 Pulse Oximetry 94 L 12/23/17 04:00 12/23/17 05:00 12/23/17 06:00 Temperature Pulse Rate 76 84 78 Respiratory Rate Blood Pressure Pulse Oximetry 12/23/17 08:08 Temperature 98.0 F Pulse Rate 80 Respiratory Rate 18 Blood Pressure 111/69 Pulse Oximetry 95 Intake & Output 12/22/17 12/23/17 12/23/17 18:59 06:59 18:59 Intake Total 700 / 700 480 / 480 Output Total 775 / 775 775 / 775 Balance -75 / -75 -295 / -295 Weight 73 kg Intake: IV 100 / 100 Levaquin 500 mg Premix Inj 500 100 / 100 mg In 100 ml @ 100 mls/hr IV. SIG Q24H [facility] Rx#:[id number] Oral 600 / 600 480 / 480 Output: Urine 775 / 775 775 / 775 Other: Date of Last Bowel Movement 12/22/17 12/22/17 # Bowel Movements 1 Results 12/22/17 11:55 12/22/17 11:55 CBC 12/22/17 Range/Units 11:55 WBC 8.2 (4.0-11.0) th/mm3 RBC 3.40 L (4.00-5.30) mil/mm3 Hgb 10.7 L (11.6-15.3) gm/dL Hct 31.0 L (35.0-46.0) % Plt Count 370 (150-450) th/mm3 Neut # (Auto) 6.1 (1.8-7.7) th/mm3 Lymph # (Auto) 1.1 (1.0-4.8) th/mm3 [place] # (Auto) 0.7 (0.0-0.9) th/mm3 Eos # (Auto) 0.2 (0.0-0.4) th/mm3 Baso # (Auto) 0.0 (0.0-0.2) th/mm3 Comprehensive Metabolic Panel 12/22/17 Range/Units 11:55 Sodium 137 (136-145) meq/L Potassium 3.7 (3.5-5.1) meq/L Chloride 100 (98-107) meq/L Carbon Dioxide 27.1 (21.0-32.0) meq/L BUN 12 (7-18) mg/dL Creatinine 1.11 H (0.50-1.00) mg/dL Calcium 8.9 (8.5-10.1) mg/dL Intake and Output 12/22/17 12/23/17 12/23/17 22:59 06:59 14:59 Intake Total 700 / 700 480 / 480 Output Total 775 / 775 775 / 775 Balance -75 / -75 -295 / -295 Intake: IV 100 / 100 Levaquin 500 mg Premix Inj 500 100 / 100 mg In 100 ml @ 100 mls/hr IV. SIG Q24H [facility] Rx#:[id number] Oral 600 / 600 480 / 480 Output: Urine 775 / 775 775 / 775 Other: Date of Last Bowel Movement 12/22/17 12/22/17 # Bowel Movements 1 Weight 73 kg Assessment and Plan - Plan Severe Aortic Stenosis Nonobstructive CAD Hip Fracture -Will proceed with TAVR, Ahn Rocio Valve. She will require rehab prior to her hip surgery. After review of the films, it does not appear as though her LAD is severe requiring PCI.
--- NOTE | 2017-12-23 10:44 | XR ---
EXAM DATE: 12/23/2017 10:35 AM EDT AGE/SEX: 77 years / Female INDICATIONS: F/u pneumonia CLINICAL DATA: This is the patient's initial encounter. Patient reports that signs and symptoms have been present for 3 days and indicates a pain score of 0/10. MEDICAL/SURGICAL HISTORY: Cerebrovascular disease. Hypertension. Cardiovascular disease. . ri ght hip surgery COMPARISON: [facility] [place], CHEST 2V PA&LAT, 12/18/2017. . FINDINGS: A single AP view of the chest demonstrates the lungs to be symmetrically aerated without evidence of mass, infiltrate or effusion. The cardiomediastinal contours are unremarkable. Osseous structures a re intact. CONCLUSION: Tortuous aorta. Lungs are clear. Stable calcified granuloma left lung. Electronically signed by: Cuco Rodríguez MD 12/23/2017 10:42 AM EDT
[2017-12-23] MEDS: Ferrous Sulfate 325 MG Tablet PO SCH ×2 (11:08→17:12)
[2017-12-23] MEDS: Levofloxacin 500 mg Premix Inj 500 MG/100 ML PIGGYBACK IV.SIG SCH (13:14)
--- NOTE | 2017-12-23 16:09 | P.DS ---
Date of admission: 12/18/17 14:00 Primary care physician: UNKNOWN Attending physician on discharge: Shadia Davenport Anticipated date of discharge: 12/23/17 Brief History from admission: This is a 77-year-old female patient of Dr. Gomez, also Dr. David Archer, who was transferred from [facility] just recently, sustained a hip fracture, underwent right intertrochanteric fracture repair by Dr. Sanchez 10 days ago after sustaining a fall at home where she tripped and fell on the ground getting out of her car. There was no loss of consciousness, nor did she hit her head. During the course of her hospital stay, she apparently had an episode of some hypotension, shortness of breath, which led to an echocardiogram, which showed severe aortic stenosis with a valve area of 0.52 cm2. Peak gradient of 156. The left atrium was dilated. Some trivial mitral regurgitation, trace tricuspid regurgitation. The patient then underwent cardiac catheterization, which showed a 60% to 70% stenosis in the mid LAD. The RCA had a 50% stenosis in the midvessel. The distal portion had a 60% stenosis, mild pulmonary hypertension, right-sided heart pressures included RA pressures of 7/4, PA pressure 26/11 with a mean of 19, wedge pressure 18/15 with a mean of 12, SVR of 1840. Cardiac output of 4 liters per minute, valve area by catheterization showed a 0.4 cm2. She has been transferred to our facility to be evaluated for aortic valve replacement versus transcatheter aortic valve replacement, also with coronary disease, 2 vessels. PAST MEDICAL HISTORY: Includes history of rheumatic heart fever, severe aortic stenosis, hypertension, hyperlipidemia, osteoporosis, urinary incontinence, hypothyroidism, gout, gastroesophageal reflux disease, history of remote cerebrovascular accident in the past. CT chest showed left lower lobe pulmonary nodule that was recommended outpatient CT Patient update on day of discharge: pt doing well on room air, needs continued wound care and wound care MD consult At SNF DS: Diagnosis - Discharge Diagnosis (1) S/P hip replacement Status: Acute (2) Blood loss anemia Status: Acute (3) HCAP (healthcare-associated pneumonia) Status: Acute (4) Aortic valve stenosis Status: Acute DS: Medications - Discharge Medications Prescriptions: hydrocodone-acetaminophen 1 tab PO Q6H PRN #20 tab PRN Reason: Acute Pain DS: Summary Hospital Course: 12/19 pt feels fair HGB 8.1 for RBC today await TAVR CTA will dc midodrine BP stable OOB with PT / activity for full weight bearing ok per Dr Sanchez ( ortho at [facility] ) Hospitalist consult agree with rehab placement appreciate wound care 12/20 Clinically and hemodynamically stable and doing well Again discussed plan and options with her in detail including interim rehab prior to aortic valve procedure May need intervention to the LAD as well prior to her TAVR Appreciate consultants input 12/21 Clinical stable Awaiting [place] inpatient rehabilitation evaluation Tums for GERD 12/22 doing well VSS await rehab placement also eval by Dr Mustafa then bring back for TAVR at later date 12/23 pt a candidate for TAVR pt will return as elective procedure on 01/07 draftsperson is Sera Patel RN ( TAVR coordinator ) [phone] - Time Spent with Patient Total time spent providing and/or coordinating discharge services: Greater than 30 minutes Exam Vital signs: Vital Signs 12/22/17 17:00 12/22/17 18:00 12/22/17 19:00 Temperature 98.0 F Pulse Rate 95 H 93 H 87 Respiratory Rate 16 Blood Pressure 126/74 Pulse Oximetry 95 12/22/17 20:00 12/22/17 21:00 12/22/17 22:00 Temperature Pulse Rate 86 86 90 Respiratory Rate Blood Pressure Pulse Oximetry 12/22/17 23:00 12/23/17 00:00 12/23/17 01:00 Temperature 98.1 F Pulse Rate 79 74 82 Respiratory Rate 16 Blood Pressure 107/67 Pulse Oximetry 94 L 12/23/17 02:00 12/23/17 03:00 12/23/17 04:00 Temperature 98.2 F Pulse Rate 90 80 76 Respiratory Rate 16 Blood Pressure 103/64 Pulse Oximetry 94 L 12/23/17 05:00 12/23/17 06:00 12/23/17 07:00 Temperature Pulse Rate 84 78 80 Respiratory Rate Blood Pressure Pulse Oximetry 12/23/17 08:00 12/23/17 08:08 12/23/17 09:00 Temperature 98.0 F Pulse Rate 90 80 95 H Respiratory Rate 18 Blood Pressure 111/69 Pulse Oximetry 95 12/23/17 10:00 12/23/17 10:53 12/23/17 11:00 Temperature 98.0 F Pulse Rate 91 H 83 79 Respiratory Rate 18 Blood Pressure 106/66 Pulse Oximetry 95 12/23/17 12:00 Temperature Pulse Rate 95 H Respiratory Rate Blood Pressure Pulse Oximetry Intake & Output 12/22/17 12/23/17 12/23/17 18:59 06:59 18:59 Intake Total 700 / 700 480 / 480 100 / 100 Output Total 775 / 775 775 / 775 Balance -75 / -75 -295 / -295 100 / 100 Weight 73 kg Intake: IV 100 / 100 100 / 100 Levaquin 500 mg Premix Inj 500 100 / 100 100 / 100 mg In 100 ml @ 100 mls/hr IV. SIG Q24H SABI Rx#:[id number] Oral 600 / 600 480 / 480 Output: Urine 775 / 775 775 / 775 Other: Date of Last Bowel Movement 12/22/17 12/22/17 # Bowel Movements 1 - Constitutional no acute distress - Routine HEENT Exam Head: Present: normocephalic Eye: Present: EOMI ENT: Present: mucous membranes moist - Routine Neck Exam Present: supple, full ROM - Routine Respiratory Exam Present: CTA bilaterally - Routine Cardiovascular Exam Present: RRR, S1, S2, murmur Comments: 3/6 sm - Routine Extremities Exam Comments: right hip mild swelling along right hip incision right lower leg with ecchymosis and some swelling + coccyx decubitus - Routine Skin Exam Comments: coccyx wound Length (cm): 6.0 Width (cm): 4.3 Wound Bed Appearance: Necrotic, Peeling Skin, [place], Shiny Surrounding Tissue Appearance: Blanched/Dull Surrounding Tissue Temperature: Cool Drainage Description: Serosanguinous Drainage Amount: Scant Drainage Odor: No Odor right hip incision - Routine Neurological Exam Present: alert, oriented X3, CN II-XII intact Results Procedures completed during hospitalization: TAVR workup Labs on day of discharge: Labs from last 24 hours 12/23/17 05:15 Magnesium 2.0 - Impressions ITS Impressions Carotid Doppler Study 12/18/17 15:22 CONCLUSION: 1. Right Internal Carotid Artery: Moderate plaque without hemodynamically significant stenosis. 2. Left Internal Carotid Artery: Moderate plaque without hemodynamically significant stenosis. Chest CT 12/19/17 00:00 CONCLUSION: 1. 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 2. 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 3. 50-60% stenosis of the left renal artery. 4. Cholelithiasis. 5. Small bilateral pleural effusions. Chest X-Ray 12/23/17 00:00 CONCLUSION: Tortuous aorta. Lungs are clear. Stable calcified granuloma left lung. Discharge Plan - Discharge Disposition Patient Disposition: Discharge to SNF - Discharge Condition Condition: Good - Discharge Order Discharge Orders: Discharge Order (Routine); Ordered 12/23/17 Ordered By: Zuleyma Boone - Discharge Details Anticipated Discharge Date: 12/23/17 - Physicians Team Primary Care Provider: UNKNOWN, Attending Provider: Shadia Davenport Other Providers: Eliel Jacobsen DO ; Kaylee Page ; Taniya Mustafa MD ; [facility] - Rxs /Orders / Referrals /Forms Prescriptions: New acetaminophen 325 mg Tablet 650 mg PO Q4H PRN (Reason: Temp > 100.4) RF: 0 aspirin 81 mg Tablet,Delayed Release (Dr/Ec) 81 mg PO DAILY RF: 0 calcium carbonate 200 mg calcium (500 mg) Tablet,Chewable 500 mg PO Q6H PRN (Reason: Dyspepsia) RF: 0 collagenase clostridium histo. [Santyl] 250 unit/gram Ointment 1 applicatio Topical DAILY RF: 0 ferrous sulfate [FeroSul] 325 mg (65 mg iron) Tablet 325 mg PO BID@1200,1700 RF: 0 hydrocodone-acetaminophen 5-325 mg Tablet 1 tab PO Q6H PRN (Reason: Acute Pain) Qty: 20 RF: 0 Continue alendronate 70 mg Tablet 70 mg PO QWEEK allopurinol 300 mg Tablet 300 mg PO DAILY docusate sodium 100 mg Capsule 100 mg PO PRN levothyroxine 112 mcg Tablet 112 mcg PO DAILY omeprazole 20 mg Capsule,Delayed Release(Dr/Ec) 20 mg PO DAILY oxybutynin chloride 5 mg Tablet 5 mg PO TID pravastatin 40 mg Tablet 80 mg PO DAILY Discontinued amlodipine 5 mg Tablet 5 mg PO DAILY enoxaparin 40 mg/0.4 mL Syringe 40 mg SUBCUT DAILY lisinopril 40 mg Tablet 80 mg PO BID midodrine 5 mg Tablet 10 mg PO DAILY morphine (PF) in 0.9 % NaCl 2 mg/mL Syringe 2 mg IV Q4H PRN (Reason: Pain, Moderate) ondansetron HCl (PF) 4 mg/2 mL Solution 4 mg IV PRN Vitamin D2 No Action acetaminophen 325 mg Tablet 650 mg PO Q4H PRN (Reason: Pain, Mild) Referrals: Indira Cote MD [Physician] - See Instructions (for any TAVR questions please contact Dr Cote scheduled for surgery on 01/07/18 ) Elma Patel RN [Registered Nurse] - See Instructions (for any questions [phone] ) UNKNOWN, [Primary Care Provider] - See Instructions - Discharge Instructions Additional Instructions: Recommendation: 1. Encourage patient to reposition to left and right side every 2 hours for comfort and offloading. 2. Cleanse left upper buttocks with normal saline only (wound cleanser deactivated Santyl by 80%). 3. Apply Santyl 2mm thick to necrotic wound base ,Apply Calazime cream to periwound cover with saline moistened gauze secure with border gauze or ABD.Change dressing daily or as needed for exudate management or dislodgement. 4. Sign and date all dressings. 5. Reinforce steri strip to right lateral hip incision as needed. Additional information: Patient was seen today by insurance underwriter sales for wound management.Patient alert on stretcher upon insurance underwriter sales arrival in no acute distress.Patient was able to independently reposition self to left side for visual assessment. Stationary Steam Engineer was able to visualize sacral/coccyx region.Patient noted to have 10 day old surgical incision to lateral right hip with incision dehiscence noted ~3cm. incision cleansed with normal saline pat dry Cavilon skin prep applied 3 steri strips applied . Patient has deformed sacral/coccyx veering to right side .States deformity is caused by prior fracture.Stationary Steam Engineer was able to visualize sacral region patient has mixed etiology moisture /friction/pressure injury measuring 6.0cm x 4.3cm x yellow/brown slough. Wound base is 80% moist yellow/ brown adhered slough 20% pink partial thickness tissue loss.wound edges are well defined irregular in shape even with wound base.Periwound blanchable.Wound cleansed with normal saline pat dry Calazime cream applied to wound base and periwound covered with ABD secure with paper tape.Patient tolerated wound acre well [employer] RN to apply Santyl when available to floor. Wound/Pressure Injury - Wound Left Sacrum Wound Staging: Unstageable Wound Assessment: Admission Wound Type: Pressure Injury Is This a Chronic Wound: Yes Requested from Provider a Wound Care Consult: No (Paty VALDIVIA,[facility] seen 12/19) Length (cm): 6.0 Width (cm): 4.3 Wound Bed Appearance: Necrotic, Peeling Skin, [place], Shiny Surrounding Tissue Appearance: Blanched/Dull Surrounding Tissue Temperature: Cool Drainage Description: Serosanguinous Drainage Amount: Scant Drainage Odor: No Odor Dressing Status: Changed Cleansing Solution: Saline Topical: Calazime Primary Dressing: Absorbant Pad Tape Type: Paper Wound Dressing Change Date: 12/19/17 - Post Discharge Care Plan Care Plan Goals: Eryn Allison 77 [id number] : 1940 MR#: [id number] Admit Date: 12/18/17 Referring Physician: Entry Date/Time: 12/23/17 1219 Report # [id number] PHYSICAL THERAPY FLOW SHEET Eryn Allison [facility] 459-[id number] : 1940 MR#: [id number] Admit Date: 12/18/17 Referring Physician: Entry Date/Time: 12/23/17 1219 Report # [id number] CURRENT DISCHARGE RECOMMENDATIONS/ATTENTION CASE MANAGEMENT: EQUIPMENT: ___ STANDARD WALKER ___ WHEELED WALKER ___ WHEELCHAIR ___ REMOVABLE ARMS ___ REMOVABLE LEGS, ELEVATING LEG REST ___ BEDSIDE COMMODE ___ NONE - OWNS ROLLING WALKER, BEDSIDE COMMODE/SHOWER CHAIR ___ OTHER: CONTINUED THERAPY: _X_ PT AT REHAB ___ HOME WITH NO PT RECOMMENDED ___ HOME WITH HOME HEALTH PT ___ HOME WITH OUT PATIENT PT ___ REQUIRES SUPERVISION AT HOME FOR SAFETY ___ PATIENT WILL BENEFIT WITH OCCUPATIONAL THERAPY INTERVENTION ____ OTHER: EVALUATION HISTORY AND SUMMARY: PT IS A 77 Y/O Female SEEN INITIALLY AT BEDSIDE WITH A DIAGNOSIS OF Aortic Stenosis. PHYSICIAN ORDERS: PHYSICAL THERAPY EVALUATION AND TREAT ( RASHAD ) 7 DAYS A WEEK SURGICAL DATE/PROCEDURE: --- RIGHT TOTAL HIP ARTHROPLASTY 10 DAYS AGO; STATUS POST FALL WITH FRACTURE AND AVN OF FEMORAL HEAD PAST MEDICAL HISTORY, PLAN OF CARE AND GOALS - BELOW TABLE OBJECTIVE DATA FROM EVALUATION ( FIRST ENTRY) AND DAILY TREATMENT: Date: 12/19/17 12/20/17 12/21/17 12/22/17 12/23/17 Time Completed: 1100 1200 1200 [id number] Chart Reviewed YES YES YES YES YES YES YES Spoke to Nurse YES YES YES YES YES SB = stand by assist; CG = contact guarding; MIN = minimal assist; MOD = moderate assist; MAX = maximal assist INDEP = Independent; REF = refused; H = Held; DC = Discharged; DEP = Dependent ALL COMMENTS WILL BE DOCUMENTED BELOW THE FLOW SHEET BED MOBILITY/TRANSFERS Rolling/Bed Mobility CG SEATED IN CHAIR CG - UP IN CHAIR Supine Sit MIN - MIN MIN - Sit Supine - - MIN - - Sit Stand MIN X 2 SEE NOTE MIN MIN CG/MIN Stand Sit MIN X 2 - CG CG CG Bed Chair MIN X 2 WITH NURSING - CG WITH NURSING Orthosis - GAIT: WEIGHT BEARING STATUS: full weight bearing ok per Dr Sanchez ( ortho at [facility]) Distance 6 TO CHAIR SEE NOTE 8 20 50 Assistance MIN X 2 - MIN CG CG Assistive Device RW - RW RW RW Balance FAIR- - FAIR- FAIR- FAIR- Steps/Curb - - RANGE OF MOTION/STRENGTH IN AFFECTED AREA LE Exercises ACTIVE ROM; QUAD SETS, ANKLE PUMPS - QUAD SETS, ANKLE PUMPS, GLUT SETS ANKLE PUMPS -- Seated Exercises LONG ARC QUADS LONG ARC QUADS, QUAD SETS, GLUT SETS, ANKLE PUMPS X 15 LONG ARC QUADS LAQS X10 AND CALF RAISES 10X B LES Resistive Exercises - - - - - Balance Exercises - - - - - PAIN Intensity 10 2/10 2/10 2-3 NONE Location RIGHT HIP RIGHT HIP RIGHT HIP R HIP Rx TIME (MINUTES) 30 15 24 24 24 PATIENT AND FAMILY EDUCATION Home Exercise Program REV REV REV Initials: [facility] CK CK INITIALS SIGNATURE/TITLE INITIALS SIGNATURE/TITLE INITIALS SIGNATURE/TITLE [facility]= FLY KELSEY PT CK-SUNNY TEIXEIRA, 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 DAILY COMMENTS and PATIENT PROGRESS SINCE LAST TREATMENT: (Please write Time/ Date and Sign comments. Add interdisciplinary communication to each note.) 12/23/17; PT SITTING UP IN CHAIR, NO COMPLAINTS OF PAIN TODAY, ABLE TO INCREASE AMBULATION TOLERANCE TO ~50 WITH SLOW, STEP TO PATTERN AND CGA. OVERALL, PT IS WEAK AND FATIGUES EASILY AND NEEDS FURTHER CONDITIONING AND STRENGTHENING. SEATED EXERCISES PERFORMED WITH FAIR TOLERANCE. PT IS LEFT FOUND IN RECLINER WITH CALL LIGHT IN REACH. CK 12/22/17; CHART REVIEWED. PT FOUND LYING IN SUPINE, MINIMAL COMPLAINT OF PAIN, ABLE TO MOBILIZE TO EOB WITH MINIMAL ASSIST. PT DOES NOT GIVE MAXIMAL EFFORT AND AMBULATES ONLY SHORT DISTANCE WITH RW WITH STEP TO PATTERN. AFTER ASKING HER WHATS PREVENTING HER FROM WALKING MORE, PT SAYS I DONT KNOW. PT LEFT SITTING UP IN RECLINER POST SESSION WITH CALL LIGHT IN REACH CK 12/21/17: CHART REVIEWED. PATIENT REPORTS FEELING BETTER TODAY. REVIEW SUPINE THERAPEUTIC EXERCISES. PATIENT REMAINS LIMITED BY RIGHT HIP PAIN. REVIEW STEP PROGRESSION AND ROLLING WALKER USE. PATIENT WITH ANTALGIC GAIT PATTERN. PATIENT DENIES ANY DIZZINESS OR SHORTNESS OF BREATH TODAY. RETURNED TO SUPINE FOUND WITH ALL NEEDS WITHIN REACH. [facility] 12/20/17: CHART REVIEWED. ATTEMPTING TO SEE PATIENT FOR PHYSICAL THERAPY IN AM BUT PATIENT REPORTS SHE WAS JUST ASSISTED TO BEDSIDE CHAIR WITH NURSING AND WOULD PREFER TO REST; AGREES TO PERFORM THERAPEUTIC EXERCISES AND THEN WORK WITH PHYSICAL THERAPY AFTER LUNCH FOR OUT OF BED- RETURNING AFTER LUNCH TO FIND PATIENT REQUESTED ASSISTANCE FROM NURSING TO RETURN TO BED. PATIENT REPORTS WANTING TO SLEEP. WILL FOLLOW UP TOMORROW. [facility] 12/19/17: CHART REVIEWED. PHYSICAL THERAPY EVALUATION COMPLETED. [facility] PRIOR LEVEL OF FUNCTION: PATIENT PREVIOUSLY LIVING WITH AND SON IN A SINGLE STORY HOME. REPORTED INDEP WITH MOBILITY PRIOR TO FALL WITH HIP FRACTURE. OWNS ROLLING WALKER, BEDSIDE COMMODE/SHOWERCHAIR. PAST MEDICAL HISTORY: REVIEWED HISTORY OF FALLS: YES RECENT FALL WITH HIP FRACTURE COGNITIVE STATUS AT TIME OF EVALUATION: ALERT AND ORIENTED X 3. UE RANGE OF MOTION: BUE WITHIN FUNCTIONAL LIMITS UE STRENGTH: BUE GROSSLY 4/5 LE RANGE OF MOTION: BILATERAL LOWER EXTREMITY WITHIN FUNCTIONAL LIMITS LE STRENGTH: LLE GROSSLY 4/5; RLE GROSSLY 3-/5 SENSATION: INTACT TO LIGHT TOUCH ASSESSMENT: PATIENT CURRENTLY LIMITED BY RIGHT HIP PAIIN, POST OP WEAKNESS AND IMPAIRED BALANCE IN STANDING. PATIENT DENIES ANY DIZZINESS OR SHORTNESS OF BREATH WITH ACTIVITY TODAY. ASSISTED TO EDGE OF BED AND INTO STANDING. PATIENT ABLE TO TAKE SMALL ANTALGIC STEPS WITH USE OF ROLLING WALKER. NO LOSS OF BALANCE NOTED. PATIENT ONLY ABLE TO AMBULATE SHORT DISTANCE BEFORE REQUESTING SITTING IN BEDSIDE CHAIR. EDUCATION ON PREVENTION OF DVT, PNEUMONIA, WEAKNESS AND BED SORES. EXPLAINED THE IMPORTANCE OF MOBILITY AND PHYSICAL THERAPY. PATIENT UNDERSTOOD. PATIENT LEFT WITH ALL NEEDS WITHIN REACH. PLAN OF CARE: PHYSICAL THERAPY 7 TIMES A WEEK THROUGH THE LENGTH OF STAY FOR THERAPEUTIC EXERCISES, BED MOBILITY TRAINING, TRANSFER TRAINING, GAIT AND BALANCE IF APPROPRIATE, AND PATIENT EDUCATION. REHAB POTENTIAL: GOOD PATIENTS PERSONAL GOALS: GOALS: SEE EMR PATIENT PARTICIPATED IN DEVELOPMENT OF GOALS AND PLAN OF CARE (YES/NO/UNABLE): YES BARRIERS OR FACILITATING FACTORS TO ATTAINING GOALS: RECENT RIGHT HIP FRACTURE/ TOTAL HIP ARTHROPLASTY INTERDISCIPLINARY COMMUNICATION: CHART REVIEWED, NURSE AWARE DISABILITY ELEMENTS SCORE LOCOMOTION ____ 4 = INDEPENDENT: WALKS A MINIMUM OF 150 FEET WITHOUT ASSISTING DEVICES. DOES NOT USE A WHEELCHAIR. PERFORMS SAFELY. ____ 3 = INDEPENDENT WITH DEVICE: WALKS A MINIMUM OF 150 FEET, BUT USES A BRACE (ORTHOSIS) OR PROSTHESIS ON LEG, SPECIAL ADAPTIVE SHOES, CANE, CRUTCHES, OR WALKERETTE; TAKES MORE THAN A REASONABLE TIME; OR THERE ARE SAFETY CONSIDERATIONS. IF NOT WALKING, OPERATES MANUAL OR ELECTRIC WHEELCHAIR INDEPENDENTLY FOR A MINIMUM OR 150 FEET; TURNS AROUND; MANEUVERS THE CHAIR TO A TABLE, BED, TOILET; NEGOTIATES AT LEAST A 3%EDGARDO; MANEUVERS ON RUGS AND OVER DOOR KATLYN. _X__ 2 = DEPENDENT PARTIAL HELP REQUIRED: IF WALKING, REQUIRES STANDBY SUPERVISION, CUEING OR COAXING TO GO A MINIMUM OF 150 FEET, OR WALKS INDEPENDENTLY ONLY SHORT DISTANCES (A MINIMUM 0F 50 FEET). IF NOT WALKING, REQUIRES STANDBY SUPERVISION, CUEING OR COAXING TO GO A MINIMUM OF 150 FEET IN WHEELCHAIR, OR OPERATES MANUAL OR ELECTRIC WHEELCHAIR INDEPENDENTLY ONLY SHORT DISTANCES (A MINIMUM OF 50 FEET). ____ 1 = DEPENDENT TOTAL HELP REQUIRED: PERFORMS LESS THAN HALF OF LOCOMOTION EFFORT TO GO A MINIMUM OF 50 FEET, OR DOES NOT WALK OR WHEEL A MINIMUM OF 50 FEET. REQUIRES ASSISTANCE OF ONE OR MORE PERSONS.
[2017-12-23 16:39] VITALS: BP 117/75; RESP 20; TEMP 98.1; O2SAT 96
[2017-12-23 17:03] VITALS: PULSE 100
--- NOTE | 2017-12-24 11:09 | P.FRAIL ---
Frailty Index Date: December 23, 2017 Height: 160 cm Weight: 73 kg BMI: 29.7 Assessment Performed: Inpatient Days in Hospital at Exam: 5 - Albumin Normal Albumin range: 3.5-5.0 g/dL Albumin 2.3 g/dL (3.4-5.0) L 12/19/17 04:14 Pass/Fail: Fail - [place] Activities of Daily Living Bathing (bathes self/help in single area): [place] Dressing (gets/puts clothes on self): [place] Toileting (goes without help): [place] Transferring (unassisted or mechanical aides): Dependence Continence (complete self-control): [place] Feeding (self, prep by another allowed): [place] Total ADL Score: 5 Pass/Fail: Pass - Employment Manager Strength 3 BMI Cutoff for Employment Manager Strength (Kg) <= 23 <= 17 23.1 - 26 <= 17.3 26.1 - 29 <= 18 Employment Manager Strength - Grasp 1: 16 Employment Manager Strength - Grasp 2: 18 Employment Manager Strength - Grasp 3: 18 Employment Manager Strength - Average: 17.3 Pass/Fail: Fail - 15-Foot Walk 3 Height 15-Foot Walk Cutoff Time <= 159 cm >= 7 seconds > 159 cm >= 6 seconds 15-Foot Walk (seconds): 12 (with walker and right hip pain) Pass/Fail: Fail - Total Frailty Total Frailty (out of 4): 3
== END 2017-12-23 17:38 ==
LOC: HCPC 14:00
PROVIDERS: ADMIT Thoracic Surgery (Cardiothoracic Vascular Surgery); ATTEND Thoracic Surgery (Cardiothoracic Vascular Surgery)

== ENCOUNTER 2018-01-07 09:38 | Inpatient (IN) ==
[~2018-01-07 09:38] MED LIST: Iohexol 350 MG/ML 100 ML Vial (for Cath Lab) IVCONTRAST ONE
[2018-01-07] MEDS ORDERED: Aspirin 325 MG Tablet PO SCH (11:15)
[2018-01-07] MEDS ORDERED: Chlorhexidine Gluconate 2% 1 Pack (2 Cloths) TOPICAL SCH (11:15)
[2018-01-07] MEDS ORDERED: Mupirocin 2% Nasal Oint Topical Syringe EACH NARE SCH (11:15)
[2018-01-07] MEDS ORDERED: ceFAZolin 2 GM Premix Inj 2 GM/50 ML PIGGYBACK IV.SIG SCH (12:00)
[2018-01-07] MEDS ORDERED: Midazolam Inj 5 MG/ML 1 ML Vial IV.PUSH ONE (12:15)
[2018-01-07 13:25] LABS: Baso % (Auto) 0.4 % (0.0-2.0); Eos % (Auto) 0.1 % (0.0-4.0); Hematocrit 32.7 % (35.0-46.0); Hemoglobin 11.4 gm/dL (11.6-15.3); Lymph # (Auto) 1.2 th/mm3 (1.0-4.8); Lymph % (Auto) 13.3 % (9.0-44.0); Mean Corpuscular HGB Conc 34.8 % (32.0-36.0); Mean Corpuscular Hemoglobin 33.3 pg (27.0-34.0); Mean Corpuscular Volume 95.8 fL (80.0-100.0); Mean Platelet Volume 8.1 fL (7.0-11.0); Mono # (Auto) 0.6 th/mm3 (0.0-0.9); Mono % (Auto) 6.5 % (0.0-8.0); Neut # (Auto) 6.9 th/mm3 (1.8-7.7); Neut % (Auto) 79.7 % (16.0-70.0); Platelet Count 175 th/mm3 (150-450); Red Blood Count 3.41 mil/mm3 (4.00-5.30); White Blood Count 8.7 th/mm3 (4.0-11.0)
[2018-01-07 13:34] LABS: INR 1.1 Ratio; Prothrombin Time 10.7 sec (9.8-11.6)
[2018-01-07 13:47] LABS: Calcium 8.6 mg/dL (8.5-10.1); Carbon Dioxide 26.6 meq/L (21.0-32.0); Potassium 4.1 meq/L (3.5-5.1)
[2018-01-07] MEDS ORDERED: Heparin 10,000 UNITS/10 ML Vial (for IV use) ONE ×2 (14:15→17:06)
[2018-01-07] MEDS ORDERED: Protamine Sulfate Inj 50 MG/5 ML Vial ONE ×3 (14:15→17:50)
--- NOTE | 2018-01-07 14:55 | P.HPCA ---
History of Present Illness Service: Cardiology Primary Care Physician: Bessy Chapman MD Chief Complaint: Severe aortic valve stenosis History of Present Illness: This is 77-year-old female who was initially transferred from [facility] after having hip fracture status post repair. At that time during her hospital stay she developed acute shortness of breath associated with hypotension. Transthoracic echocardiogram showed severe aortic valve stenosis with an aortic valve area of 0.52 cm and two-vessel coronary artery disease. She was transferred to [facility] approximately 2 weeks ago for evaluation for consideration of surgical intervention versus transcatheter aortic valve replacement. Patient has multiple comorbidities including decubitus ulcer and recent hip surgery requiring recovery. For these reasons, patient was transferred to inpatient physical rehabilitation rotan in anticipation of bring him back for an elective transcatheter valve replacement. She is here now scheduled today for her procedure. - Diagnosis (1) Diastolic congestive heart failure (2) Aortic valve stenosis Inpatient Certification: I certify that the inpatient services were ordered in accordance with Medicare regulations governing the order. This includes certification that hospital inpatient services are reasonable and necessary and in the case of services not specified as inpatient-only under 42 CFR 419.22(n), that they are appropriately provided as inpatient services in accordance to with the 2-midnight benchmark under 43 CFR 412.3(e) Review of Systems All other systems reviewed negative except as stated in HPI [facility] - History History Provided By: Patient - Medical History Medical History: Medical History (Last Updated 12/22/17 @ 12:28 by Zuleyma Boone) Acute blood loss anemia Blood loss anemia Diastolic heart failure HCAP (healthcare-associated pneumonia) - Surgical History Surgical History: Surgical History (Last Reviewed 12/22/17 @ 08:25 by Dawson Pratt, PT) S/P hip replacement - Tobacco History Second Hand Smoke Exposure: No Tobacco Use In Past 30 Days: No Smoking Status: Former smoker Tobacco Type: Cigarettes - Alcohol History How Often Do You Have a Drink Containing Alcohol: 4 or more times a week - Substance Use History Substance History: No History of Abuse Medications and Allergies Active Medications: Active Medications Aspirin (Aspirin) 325 mg PO CLAM PICKER [facility]I Stop: 01/10/18 11:07 Chlorhexidine Gluconate (Chlorhexidine 2% Cloth) 3 pack TOPICAL CL[employer] P[employer]ER [facility] Stop: 01/10/18 11:07 Cefazolin Sodium/Dextrose (Ancef 2 Gm Premix Inj) 2 gm in 50 mls @ 100 mls/hr IV.SIG ONCE [facility] Stop: 01/10/18 11:07 Sodium Chloride (Ns Inj) 1,000 mls @ 125 mls/hr IV.CONT .Q8H [facility] Mupirocin (Bactroban 2% Nasal Oint) 1 applicatio EACH NARE CLAM PICKER [facility] Stop: 01/10/18 11:07 Povidone Iodine (Betadine 5% Antisepsis Kit) 1 applicatio NASAL CLAM PICKER [facility] Stop: 01/10/18 11:07 Sodium Chloride (Ns Flush) 2 ml IV.FLUSH PRN PRN PRN Reason: FLUSH AFTER USING IV ACCESS Sodium Chloride (Ns Flush) 2 ml IV.FLUSH BID [facility] Allergies Allergy/AdvReac Type Severity Reaction Status Date / Time No Known Allergies Allergy Verified 12/18/17 15:58 Home Medications Medication Instructions Recorded Confirmed Type alendronate 70 mg PO QWEEK 12/18/17 01/07/18 History allopurinol 300 mg PO DAILY 12/18/17 01/07/18 History docusate sodium 100 mg PO PRN 12/18/17 01/07/18 History levothyroxine 112 mcg PO DAILY 12/18/17 01/07/18 History omeprazole 20 mg PO DAILY 12/18/17 01/07/18 History oxybutynin chloride 5 mg PO TID 12/18/17 01/07/18 History pravastatin 80 mg PO DAILY 12/18/17 01/07/18 History Exam Vital signs: Vital Signs 01/07/18 11:32 01/07/18 12:00 01/07/18 13:00 Temperature 98.6 F 98.6 F Pulse Rate 95 H 95 H 104 H Respiratory Rate 18 16 Blood Pressure 119/78 112/68 Pulse Oximetry 01/07/18 14:00 Temperature 98.6 F Pulse Rate 96 H Respiratory Rate 16 Blood Pressure 111/74 Pulse Oximetry 100 Intake & Output 01/06/18 01/07/18 01/07/18 18:59 06:59 18:59 Weight 68.5 kg Other: Weight On Admission 68.5 kg - Constitutional no acute distress - Routine HEENT Exam Eye: Present: EOMI, PERRL ENT: Present: mucous membranes moist - Routine Neck Exam Absent: JVD - Routine Respiratory Exam Present: CTA bilaterally - Routine Cardiovascular Exam Present: RRR, murmur - Routine Abdominal Exam Present: soft, normoactive bowel sounds - Routine Extremities Exam Absent: edema - Routine Neurological Exam Present: oriented X3, CN II-XII intact. Absent: sensory deficit, motor deficit Results 01/07/18 13:15 01/07/18 13:15 Coagulation 01/07/18 01/07/18 Range/Units 13:15 13:15 PT 10.7 (9.8-11.6) sec APTT 29.2 (23.4-31.7) sec CBC 01/07/18 Range/Units 13:15 WBC 8.7 (4.0-11.0) th/mm3 RBC 3.41 L (4.00-5.30) mil/mm3 Hgb 11.4 L (11.6-15.3) gm/dL Hct 32.7 L (35.0-46.0) % Plt Count 175 D (150-450) th/mm3 Neut # (Auto) 6.9 (1.8-7.7) th/mm3 Lymph # (Auto) 1.2 (1.0-4.8) th/mm3 [place] # (Auto) 0.6 (0.0-0.9) th/mm3 Eos # (Auto) 0.0 (0.0-0.4) th/mm3 Baso # (Auto) 0.0 (0.0-0.2) th/mm3 Comprehensive Metabolic Panel 01/07/18 Range/Units 13:15 Sodium 139 (136-145) meq/L Potassium 4.1 (3.5-5.1) meq/L Chloride 105 (98-107) meq/L Carbon Dioxide 26.6 (21.0-32.0) meq/L BUN 12 (7-18) mg/dL Creatinine 0.97 (0.50-1.00) mg/dL Calcium 8.6 (8.5-10.1) mg/dL Intake and Output 01/06/18 01/07/18 01/07/18 22:59 06:59 14:59 Other: Weight 68.5 kg Weight On Admission 68.5 kg Patient Weight 01/08/18 06:59 Weight 68.5 kg Caprini VTE Risk Assessment Caprini VTE Risk Assessment: Moderate/High Risk (score >= 2) Caprini Risk Assessment Model: Point Value = 1 Point Value = 2 Point Value = 3 Point Value = 5 Age 41-60 Minor surgery BMI > 25 kg/m2 Swollen legs Varicose veins or History of unexplained or recurrent spontaneous Oral contraceptives or hormone replacement Sepsis (< 1 month) Serious lung disease, including pneumonia (< 1 month) Abnormal pulmonary function Acute myocardial infarction Congestive heart failure (< 1 month) History of inflammatory bowel disease Medical patient at bed rest Age 61-74 Arthroscopic surgery Major open surgery (> 45 min) Laparoscopic surgery (> 45 min) Malignancy Confined to bed (> 72 hours) Immobilizing plaster cast Central venous access Age >= 75 History of VTE Family history of VTE Factor V Leiden Prothrombin [id number] Lupus anticoagulant Anticardiolipin antibodies Elevated serum homocysteine Heparin-induced thrombocytopenia Other congenital or acquired thrombophilia Stroke (< 1 month) Elective arthroplasty Hip, pelvis, or leg fracture Acute spinal cord injury (< 1 month) Prophylaxis Regimen: Total Risk Factor Score Risk Level Prophylaxis Regimen 0-1 Low Early ambulation 2 Moderate Order ONE of the following: *Sequential Compression Device (SCD) *Heparin 5000 units SQ BID 3-4 Higher Order ONE of the following medications: *Heparin 5000 units SQ TID *Enoxaparin/Lovenox 40 mg SQ daily (WT < 150 kg, CrCl > 30 mL/min) *Enoxaparin/Lovenox 30 mg SQ daily (WT < 150 kg, CrCl > 10-29 mL/min) *Enoxaparin/Lovenox 30 mg SQ BID (WT < 150 kg, CrCl > 30 mL/min) AND/OR *Sequential Compression Device (SCD) 5 or more Highest Order ONE of the following medications: *Heparin 5000 units SQ TID (Preferred with Epidurals) *Enoxaparin/Lovenox 40 mg SQ daily (WT < 150 kg, CrCl > 30 mL/min) *Enoxaparin/Lovenox 30 mg SQ daily (WT < 150 kg, CrCl > 10-29 mL/min) *Enoxaparin/Lovenox 30 mg SQ BID (WT < 150 kg, CrCl > 30 mL/min) AND *Sequential Compression Device (SCD) Assessment and Plan - Assessment (1) Diastolic congestive heart failure Code(s): I50.30 - Unspecified diastolic (congestive) heart failure Status: Acute (2) Aortic valve stenosis Code(s): I35.0 - Nonrheumatic aortic (valve) stenosis Status: Acute - Plan Aortic valve stenosis She is a 77-year-old female status post recent hip fracture and repair who was found to have severe aortic valve stenosis. She is here today for transcatheter valve replacement. Preoperative workup: STS score 3.1% [place] [employer] functional class III/IV symptoms Body mass index 28.7 STS score 3/4 Electrocardiogram normal sinus rhythm Pulmonary function test from December 19, 2017 shows FEV1 1.74 which is normal Echocardiogram from December 03, 2017 shows peak jet velocity 6.24 m/s, mean gradient 95 mmHg, aortic valve area 0.59 cm, ejection fraction 55% to 60%, mild to moderate aortic valve insufficiency Cardiac catheterization from December 17, 2017 shows 60-70% proximal to mid left anterior descending coronary artery and moderate right coronary artery stenosis. Computed tomography analysis on December 19, 2017 shows a short annulus diameter 19.6 mm, long anus diameter 23.5 mm, annular area 361 mm, sinus of Valsalva diameter 32.5 mm, sinotubular junction diameter 30.7 mm, left coronary height 8.4 mm, right coronary height 17.6 mm, right minimal luminal diameter 8.6 mm, left minimal luminal diameter 7.8 mm. Patient is intermediate risk for surgical aortic valve replacement. Patient is agreeable to proceed with transcatheter aortic valve replacement. We will plan to use a 23 mm Ahn Rocio S3 bioprosthetic aortic valve through a transforaminal approach. Risks, benefits, alternatives were discussed with the patient patient is agreeable to proceed. H&P: Quality - VTE Deep Vein Thrombosis/Pulmonary Embolism Present on Admission: No (2) Aortic valve stenosis Qualifiers:
[2018-01-07] MEDS ORDERED: ceFAZolin 2 GM Premix Inj 2 GM/50 ML PIGGYBACK IV.SIG ONE (15:02)
[2018-01-07] MEDS ORDERED: Phenylephrine/NS 1000 MCG/10ML Syringe IV.PUSH ONE (15:05)
[2018-01-07] MEDS ORDERED: Sodium Chlor 0.9% Inj 500 ML IV.CONT ONE (15:05)
[2018-01-07] MEDS ORDERED: Labetalol HCl Inj 100 MG/20 ML Vial IV.CONT ONE (15:05)
[2018-01-07] MEDS ORDERED: Lidocaine PF 1% Inj 5 ML Syringe OTHER ONE (15:05)
[2018-01-07] MEDS ORDERED: Normosol-R pH 7.4 Inj 1,000 ML IV.CONT ONE (15:05)
[2018-01-07] MEDS ORDERED: Iohexol Inj 350 MG/ML 100 ML Bottle (for RAD Diag) IVCONTRAST ONE ×2 (16:10→17:22)
--- NOTE | 2018-01-07 16:21 | P.OP ---
- Preoperative Diagnosis (1) Diastolic congestive heart failure (2) Aortic valve stenosis Postoperative Diagnosis: same Date of procedure: 01/07/18 Procedure: Transcatheter aortic valve replacement with a 23 Rocio 3 tissue valve Bilateral femoral artery access with Perclose closure on the left Left femoral venous access Aortography fluoroscopy Implants: 23 Rocio 3 tissue valve Anesthesia: GETA Surgeon: Taniya Mustafa MD Co-surgeon - Minor Pathology: none sent Operation and Findings: The risks, benefits, complications, treatment options, and expected outcomes were discussed with the patient. The possibilities of reaction to medication, pulmonary aspiration, perforation of viscus, bleeding, recurrent infection, the need for additional procedures, failure to diagnose a condition, and creating a complication requiring transfusion or operation were discussed with the patient. The patient concurred with the proposed plan, giving informed consent. The site of surgery properly noted/marked. The patient was taken to hybrid operating room, identified as Ana Maria Hernandez and the procedure verified as Transcatheter Aortic Valve Replacement. A Time Out was held and the above information confirmed. Standard monitoring lines and Garcia catheter were placed. General anesthesia was induced. The patient was prepped and draped in a sterile fashion. Initially, left femoral arterial and venous access was acquired using a Seldinger percutaneous technique. The details of this procedure were dictated under separate note by cardiology. Once a pigtail was positioned in the aortic annulus and a temporary transvenous pacemaker wire was placed in the right ventricular apex and tested, the right femoral artery was accessed using a needle followed by a guidewire under fluoroscopic guidance. The patient was heparinized and 2 Perclose devices deployed for later closure. Serial dilators were used to dilate the right femoral artery to 14 [place]i caliber. The Ahn sheath was then inserted up to the distal abdominal aorta. Arch aortography was performed to define the implant view. A balloon aortic valvuloplasty was then performed using a 22 x 4 true flow balloon with the patient being paced at 120 beats per minute. A 23 Ahn Rocio 3 transcatheter aortic valve was then positioned in the annulus and deployed with the patient being paced at 180 beats per minute. Following deployment, the valve apparatus was withdrawn and arch aortography and ARLENE were performed to assess the valve. The valve had no significant perivalvular leaks. Gradients were then measured and the sheath was removed. Perclose sutures were secured with good hemostasis. Protamine was administered. Sterile dressings were placed. At the end of the operation, all sponge, instruments, and needle counts were correct. The patient was transferred to the CVICU in stable condition. Findings: No PVL noted post deployment Complications: none
[2018-01-07] MEDS ORDERED: Heparin/NS PF Inj 500 ML ONE (17:04)
--- NOTE | 2018-01-07 17:08 | P.PCN ---
Date of procedure: 01/07/18 Procedure: Procedure: Transesophageal Echocardiography Diagnosis: severe aortic stenosis Indications: perioperative planning for transcatheter aortic valve replacement Consent: obtained Anesthesia: GETA Description of the Procedure: The patient was sedated and mechanically ventilated. The echo probe was inserted easily and without resistance. At the conclusion of the procedure, the echo probe was removed. Please see detailed echocardiogram report for formal findings. Preliminary Findings (not confirmed): pre-procedure: 1) preserved LV function 2) severe aortic stenosis 3) [id number] aortic regurgitation 4) trace mitral regurgitation 5) no evidence of intra-atrial shunting by color flow Doppler 6) no pericardial effusion Post-procedure: 1) s/p successful placement of transcatheter aortic valve 2) no evidence of bioprosthetic valve stenosis 3) no perivalvular leak 4) no pericardial effusion The patient tolerated the procedure well with no hemodynamic instability. There were no immediate complications noted. There was minimal EBL. I personally performed the procedure.
--- NOTE | 2018-01-07 17:09 | P.PCN ---
Date of procedure: 01/07/18 Procedure: Transvenous Pacer Procedure Note Diagnosis: severe aortic stenosis Indications: need for intra-operative rapid ventricular pacing Consent: obtained from the patient Anesthesia: versed 3mg iv Description of the Procedure: The patient was placed in the supine, mild- Trendelenburg position. The area was prepped and draped sterilely. A central introducer sheath was placed (see separate procedure note for details). Through this sheath, the 5 Fr transvenous pacer was inserted sterilely to a depth of 20 cm. The balloon was inflated and advanced in diastole with the pacer connected under real-time electrocardiographic monitoring, until capture was obtained. The balloon was deflated. The pacer was secured in position. There were no immediate complications noted. There was minimal EBL. The patient tolerated the procedure well. Depth at Capture: 35cm mA at capture: 0.5 I personally performed the procedure.
--- NOTE | 2018-01-07 17:09 | P.PCN ---
Date of procedure: 01/07/18 Procedure: Procedure: Arterial Line Placement right radial arterial line Diagnosis: severe aortic stenosis Indications: need for [id number] hemodynamic monitoring Consent: obtained from the patient Description of the Procedure: The right wrist was prepped and draped sterilely. 1% lidocaine was used for local anesthesia. Using ultrasound guidance, the radial artery was located and a needle was advanced into the artery under direct, real-time ultrasound guidance. The vascular anatomy of the right wrist was normal. A 20 gauge, 12 cm catheter was advanced into the artery using a modified Seldinger technique. The catheter was sutured to the skin and a sterile dressing was applied. The catheter was connected to a pressure transducer and an arterial waveform was noted. There were no immediate complications noted. There was minimal EBL. I personally performed the procedure.
--- NOTE | 2018-01-07 17:09 | P.CONCC ---
History of Present Illness Service: Critical Care Medicine Consult date: 01/07/18 Requesting Physician: Cuco Valero Reason for Consult: perioperative management of medical comorbidities Primary Care Provider: Bessy Chapman MD Chief Complaint: Severe aortic valve stenosis History of Present Illness: This is a 77yF with history of severe aortic stenosis who presents for transcatheter aortic valve replacement. Of note, she was recently hospitalized 2 weeks ago for acute pneumonia and her hospitalization was complicated at that time by a stage III sacral decubitus ulcer. Depsite this, she is currently residing in a SNF and has a normal wbc, afebrile, and has completed full antibiotic course. I met the patient originally pre-operatively where she denied complaints. I evaluated the patient also immediately post-op from her TAVR where she was recently extubated and arousing from anesthesia. at that second time, limited ROS was negative for chest pain, sob, nausea, vomiting, sore throat, headache. Soon after extubation but before moving out of the OR, it was noted that she did not have LLE pulses. I personally examined the patient at that time, but could not find PT, DP, popliteal or distal femoral pulses by palpation or Doppler signal. Although an underbody forced-air warming device was on the patient, the left lower extremity was notably more poikilothermic than the right lower extremity and it had significantly more delayed cap refill. Dr. Valero was immediately notified and came immediately to the bedside, where the decision was made to re-investigate her arterial disease in an endovascular fashion. At that time, complete occlusion of the left femoral artery was identified and endovacularly balloon repaired. Review of Systems unobtainable due to mental status (arousing from anesthesia) PMFSH - History History Provided By: Patient, Medical Record - Medical History Medical History: Medical History (Last Reviewed 01/07/18 @ 21:51 by Michael Jurado MD) Acute blood loss anemia Blood loss anemia Diastolic heart failure HCAP (healthcare-associated pneumonia) - Surgical History Surgical History: Surgical History (Last Reviewed 01/07/18 @ 21:51 by Michael Jurado MD) S/P hip replacement - Family History Family History: Family History (Last Updated 01/07/18 @ 21:51 by Michael Jurado MD) Other Family history non-contributory - Social History I have reviewed the patient's Social History: Yes - Tobacco History Second Hand Smoke Exposure: No Tobacco Use In Past 30 Days: No Smoking Status: Former smoker Tobacco Type: Cigarettes - Alcohol History How Often Do You Have a Drink Containing Alcohol: 4 or more times a week - Substance Use History Substance History: No History of Abuse Medications and Allergies Active Medications: Active Medications Aspirin (Aspirin) 325 mg PO DIRECTOR OF PRODUCT DEVELOPMENT [facility] Stop: 01/10/18 11:07 Chlorhexidine Gluconate (Chlorhexidine 2% Cloth) 3 pack TOPICAL [employer]OR [employer]ODUCT DEVELOPMENT [facility] Stop: 01/10/18 11:07 Cefazolin Sodium/Dextrose (Ancef 2 Gm Premix Inj) 2 gm in 50 mls @ 100 mls/hr IV.SIG ONCE [facility] Stop: 01/10/18 11:07 Sodium Chloride (Ns Inj) 1,000 mls @ 125 mls/hr IV.CONT .Q8H [facility] Mupirocin (Bactroban 2% Nasal Oint) 1 applicatio EACH NARE [employer]ODUCT DEVELOPMENT [facility] Stop: 01/10/18 11:07 Povidone Iodine (Betadine 5% Antisepsis Kit) 1 applicatio NASAL [employer]ELOPMENT [facility] Stop: 01/10/18 11:07 Sodium Chloride (Ns Flush) 2 ml IV.FLUSH PRN PRN PRN Reason: FLUSH AFTER USING IV ACCESS Sodium Chloride (Ns Flush) 2 ml IV.FLUSH BID [facility] Allergies Allergy/AdvReac Type Severity Reaction Status Date / Time No Known Allergies Allergy Verified 12/18/17 15:58 Home Medications Medication Instructions Recorded Confirmed Type alendronate 70 mg PO QWEEK 12/18/17 01/07/18 History allopurinol 300 mg PO DAILY 12/18/17 01/07/18 History docusate sodium 100 mg PO PRN 12/18/17 01/07/18 History levothyroxine 112 mcg PO DAILY 12/18/17 01/07/18 History omeprazole 20 mg PO DAILY 12/18/17 01/07/18 History oxybutynin chloride 5 mg PO TID 12/18/17 01/07/18 History pravastatin 80 mg PO DAILY 12/18/17 01/07/18 History Physical Exam Vital signs: Vital Signs 01/07/18 11:32 01/07/18 12:00 01/07/18 13:00 Temperature 37.0 C 37.0 C Pulse Rate 95 H 95 H 104 H Respiratory Rate 18 16 Blood Pressure 119/78 112/68 Pulse Oximetry 01/07/18 14:00 Temperature 37.0 C Pulse Rate 96 H Respiratory Rate 16 Blood Pressure 111/74 Pulse Oximetry 100 Intake & Output 01/06/18 01/07/18 01/07/18 18:59 06:59 18:59 Intake Total 750 / 750 Output Total 75 / 75 Balance 675 / 675 Weight 68.5 kg Intake: IV 50 / 50 Ancef 2 GM Premix Inj 2 gm In 50 / 50 50 ml @ 0 mls/hr IV.SIG .[facility] ONE Rx#:[id number] Anesthesia Amount 700 / 700 Output: Estimated Blood Loss 50 / 50 Urine Amount (Catheter) / Indwelling Temp Sensing / Catheter Other: Weight On Admission 68.5 kg Narrative: GENERAL: frail elderly female, lying in bed, arousing from anesthesia HEENT: Normocephalic. Atraumatic. Pupils equal, round, reactive, conjugate. Mucous membranes are moist NECK: Trachea is midline. There is no JVD. right IJ introducer sheath with transvenous pacer in place, site is clean and dry, dressing intact. CHEST: unlabored. equal chest rise. nc o2. CARDIOVASCULAR: normal rate, regular rhythm. Transvenous pacer is set VVI at a backup rate of 50. not currently paced. ABDOMEN: Soft, nontender, nondistended. No guarding. MUSCULOSKELETAL: Pulses 2+. No peripheral edema. bilateral groin sites are clean and dry, no evidence of hematoma, dressing intact. on my second evaluation on arousal from anesthesia for TAVR, good palpable right LE pulses. absent LLE pulses by palpation or Doppler. LLE cap refill delayed. NEUROLOGICAL: RASS -2. Arousing from anesthesia. follows commands. moves all extremities. no focal deficits. - Urinary Catheter Management Indwelling Temp Sensing Catheter Cath placed during this visit: yes Reason for continuing: Hourly intake/output Insertion date: 01/07/18 Insertion time: 15:15 Assessment and Plan - Assessment and Plan Plan: Assessment: 77yF POD 0 s/p TAVR via groin access, complicated by complete post- operative occlusion of the common femoral artery, emergently repaired endovascularly. admit to ICU. close vascular checks. S/p TAVR today via groin access - anticoagulation per clay dry press operator - mivf - close uop monitoring - frequent neurovascular checks - frequent groin checks - OOB after flat time Post-operative occlusion of the left common femoral artery Peripheral arterial disease - s/p re-operation with endovascular balloon angioplasty of the left common femoral artery - good post-operative angiographic result - frequent vascular checks - close monitoring for hematoma formation Hypertension - goal sbp < 180 - add back antihypertensives as needed Congestive Heart Failure secondary to valvulopathy - mivf today - may need diuresis beginning after POD 1 Hyperlipidemia - restart home statin Hypothyroidism - restart home synthroid advance diet after flat time SCDs AM CBC, BMP Critical care medicine will continue to follow while patient remains in the CVICU.
--- NOTE | 2018-01-07 17:09 | P.PCN ---
Date of procedure: 01/07/18 Procedure: Central Line Procedure Note right IJ 6 Fr 8cm introducer sheath Diagnosis: severe aortic stenosis Indications: need for highly potent vasoactive substances and central pressure monitoring Consent: obtained from the patient Anesthesia: versed 3mg iv, 1% lidocaine locally Description of the Procedure: The patient was placed in the supine, mild- Trendelenburg position. The area was prepped and draped sterilely. A 19g needle was inserted under negative pressure aspiration and dark venous blood was obtained. A guidewire was inserted easily without resistance. A small incision was made using a #11 blade. Using a modified Seldinger technique, the dilator and 6 Fr catheter were advanced over the guidewire without resistance. All ports were aspirated and flushed, and had brisk blood return. The line was secured at the skin using 2-0 silk interrupted sutures. Suture was used instead of a non-suture stat-lock device due to the size and configuration of the sheath. A Biopatch and Transparent sterile dressing were applied. There were no immediate complications noted. There was minimal EBL. The patient tolerated the procedure well. Ultrasound Guidance: Ultrasound guidance was used to identify the right internal jugular vein. The vascular anatomy of [facility] right anterior neck was normal. The vessel was cannulated under direct, real-time ultrasound visualization. After placement of the guidewire, confirmation of the guidewire in the lumen of the vessel was made using ultrasound visualization, before dilation of the tract. I personally performed the procedure.
[2018-01-07] MEDS ORDERED: fentaNYL Citrate Inj 100 MCG/2 ML Ampul ONE (17:51)
--- NOTE | 2018-01-07 18:08 | ECHRPT ---
Indication: CONCLUSIONS Normal left ventricular size and wall thickness. The left ventricular systolic function is normal wi th an estimated ejection fraction in the range of 60-65%. Left ventricular diastolic function parameters a re normal. Trileaflet aortic valve. Aortic valve sclerosis is present. Diffuse calcification of the aortic valve. No aortic valve regurgitation. Severe aortic valve stenosis. status post transcatheter aortic valve replacement. BP: / HR: Rhythm: Technical Quality: Medications Complications Proc. Components FINDINGS LEFT VENTRICLE Normal left ventricular size and wall thickness. The left ventricular systolic function is normal wi th an estimated ejection fraction in the range of 60-65%. Left ventricular diastolic function parameters a re normal. RIGHT VENTRICLE Normal right ventricular size and systolic function. LEFT ATRIUM The left atrial size is normal. RIGHT ATRIUM The right atrial size is normal. ATRIAL SEPTUM Normal atrial septal thickness without atrial level shunting by limited color doppler interrogation. AORTA The aortic root and proximal ascending aorta are normal in size on limited imaging. MITRAL VALVE Mild thickening of the mitral valve leaflets. Mild mitral valve regurgitation. AORTIC VALVE Trileaflet aortic valve. Aortic valve sclerosis is present. Diffuse calcification of the aortic valve. No aortic valve regurgitation. Severe aortic valve stenosis. status post transcatheter aortic valve replacement TRICUSPID VALVE Structurally normal tricuspid valve. No tricuspid valve stenosis or regurgitation. VESSELS The inferior vena cava is normal in size. PULMONARY VALVE The pulmonary valve is not well visualized. PERICADIUM No pericardial effusion. Cuco Valero MD, FACC (Electronically Signed) Final Date:07 January 2018 18:08
[2018-01-07] MEDS ORDERED: Morphine Sulfate Inj 2 MG/ML Vial IV.PUSH PRN (18:10)
[2018-01-07] MEDS ORDERED: Atropine Inj 1 MG/ML Vial IV.PUSH PRN (18:10)
[2018-01-07] MEDS ORDERED: Acetaminophen 325 MG Tablet PO PRN (18:10)
[2018-01-07] MEDS ORDERED: hydrALAZINE HCl Inj 20 MG/ML Vial IV.PUSH PRN (18:10)
[2018-01-07] MEDS ORDERED: Benzocaine/Menthol 15 MG/3.6 MG SF Lozenge BUCCAL PRN (18:10)
[2018-01-07] MEDS ORDERED: Sod Chloride 0.9% Inj 1,000 ML IV.CONT SCH (18:15)
--- NOTE | 2018-01-07 18:17 | P.PCN ---
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 Fluoroscopy with interpretation 2. Left heart catheterization 3. Ascending aortography 4. Temporary transvenous pacemaker placement 5. Transesophageal echocardiogram 6. Aortic balloon valvuloplasty 7. Transcatheter aortic valve replacement with Ahn 23 mm Rocio S3 bioprosthetic valve Methods: Risks, benefits, and alternatives were discussed with the patient. Patient understood and consented to the procedure. Patient was brought into the operating room and placed on the operating table. Bilateral groins and chest were prepped and draped. Under fluoroscopic guidance the left common femoral artery was cannulated and a 5 Vincentian 11 cm sheath was placed without difficulty. Left femoral vein was accessed and a 5 Vincentian 11 cm sheath was placed without difficulty. Right common femoral artery was cannulated under fluoroscopic and angiographic guidance through using a micropuncture sheath. Angiography confirmed appropriate placement. An 8 Vincentian sheath was placed without difficulty. 2 Perclose devices were deployed in a pre-close manner. The 14 Vincentian Anh sheath was then advanced up over the wire through the iliac system without difficulty into the descending abdominal aorta. Temporary transvenous pacemaker placement: A 5 Vincentian balloontipped temporary transvenous pacemaker was advanced under fluoroscopic guidance to the right internal jugular sheath to the right ventricular apex. Appropriate pacing and capture was confirmed and utilized during the procedure for rapid ventricular pacing. Transesophageal echocardiogram: Please see detailed separate report Ascending aortography: Ascending aortography was performed using an 5 Vincentian angled pigtail catheter advanced to the left common femoral arterial sheath to the level of the descending aorta and its the right coronary cusp. Ascending aortography was performed which showed 3 leaflets and parallax view. The descending aorta was not significantly dilated. Left heart catheterization: A 5 Vincentian AL-1 catheter was advanced through the right common femoral sheath to the level of the descending aorta a 0.035 inch Amplatz straight tip Super Stiff wire was then advanced across the aortic valve with some difficulty. The AL-1 catheter was advanced into the left ventricle. A 260 cm 0.035 inch standard J-wire was then advanced to the left ventricular apex and the AL-1 catheter removed. A 5 Vincentian angled pigtail catheter was then advanced over the J-wire into the left ventricular apex and the J-wire removed. A 0.035 inch 260 cm Pencil You In Confida wire was then advanced to the left ventricular apex through the pigtail catheter, and the pigtail catheter removed. Aortic balloon valvuloplasty: A 20 mm x 40 mm Donnell-Flow balloon was prepped. The balloon was then advanced over the Medtronic Confida wire to the level of the ascending aorta and across the aortic valve. Under rapid ventricular pacing at 180 bpm the aortic valvuloplasty balloon was deployed. Repeat transesophageal echocardiogram did reveal moderate aortic regurgitation, but no pericardial effusion. Patient remained hemodynamically stable. Transcatheter aortic valve replacement: A 23 mm Ahn Rocio S3 was advanced through the left common femoral sheath to the level of the descending aorta. The balloon was pulled back into the stent valve. The device was then advanced up and over the arch to the level of the ascending aorta and across the aortic valve. The pusher component was pulled back. Appropriate positioning was confirmed with a sending aortography and fluoroscopy. Under rapid ventricular pacing, the transcatheter aortic valve was slowly deployed. Immediate post deployment transesophageal echocardiogram revealed appropriate positioning. There was no perivalvular leak or pericardial effusion. Patient tolerated the procedure with good hemodynamic stability. The delivery sheath was then removed. The left common femoral arterial sheath was removed and 2 Perclose devices deployed with good hemostasis. The right common femoral artery and venous sheaths were also removed and 2 Vascade closure devices were deployed with good hemostasis. Post valve deployment intraoperative transesophageal echocardiogram findings: 1. Post aortic valve area 1.7 cm 2. Post implant mean aortic valve gradient 4 mmHg 3. Post implant peak velocity 1.57 m/seconds 4. Aortic valve insufficiency - no regurgitation or perivalvular leak Conclusions: 1. Severe marshall aortic valve stenosis 2. Successful transcatheter aortic valve replacement with a bioprosthetic 23 mm Ahn Rocio S3 valve 3. Successful aortic balloon valvuloplasty Plan: We will monitor the patient closely for any immediate postprocedural complications. We will consult electrophysiology for evaluation of postprocedure heart rhythm. We will obtain a limited transthoracic echocardiogram. We will initiate antiplatelet therapy with aspirin and Plavix. Patient be transferred to the cardiovascular intensive care unit for further monitoring
--- NOTE | 2018-01-07 18:24 | P.PCN ---
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 Following the procedure the patient was noted to have lost her left posterior tibial and dorsalis pedis pulse. Her foot was cold. I was called to evaluate further. On physical examination there was no palpable left common femoral popliteal posterior tibial or dorsalis pedis pulses. Patient was taken back to the operating room for emergent revascularization left lower extremity. Procedures performed: 1. Left lower extremity peripheral angiography with first second third order visualization and interpretation 2. Left common femoral artery percutaneous transluminal angioplasty Methods: Patient was put under moderate sedation by anesthesia after already being extubated from the prior procedure. The right and left groins were prepped and draped. The right groin was anesthetized and cannulated under fluoroscopic guidance. A 6 Kyrgyz 11 cm sheath was then advanced in the right common femoral without difficulty. Peripheral angiography: 1. The left common internal and external iliac arteries are widely patent. Left common femoral is occluded there is some very faint filling of the superficial and profunda arteries which are widely patent. At this point it appeared that the closure device caused acute closure of the left common femoral artery. Vascular surgery was contacted and notified of the potential need for surgical intervention should and endovascular approach be unsuccessful. Percutaneous intervention: 0.035 inch 260 cm stiff angled Glidewire was then navigated down the left common femoral artery through the rim catheter selectively engaged in the left common iliac artery. A 6 Kyrgyz 45 cm Terumo destination Patterson sheath was then advanced up and over the arch and into the distal left external iliac artery. Selective digital subtraction angiography confirmed that there was a flush occlusion and no flow beyond the left common femoral closure device. A 0.035 inch quick cross catheter was navigated behind the Glidewire. The Glidewire was carefully navigated down and across the occlusion into the left superficial femoral artery with some back support from the quick cross catheter. Quick cross catheter was removed a 6 mm x 40 mm peripheral balloon was then advanced on the left common femoral artery and deployed on 2 sequential inflations. Repeat angiography still showed residual stenosis but now with anabaptist of FERN-3 flow. A 7.0 x 40 mm peripheral balloon was then deployed for prolonged inflation in the left common femoral artery. Repeat angiography did show small perforation with some extravasation into the superficial tissue. The balloon was then inflated again for another prolonged inflation. Repeat angiography showed no perforation. There was FERN-3 flow and only mild residual stenosis. This point we elected not to proceed with any endovascular stenting at the level of the joint. We will monitor patient closely. The small perforation was below the level of the inferior epigastric vessel and therefore retroperitoneal hematoma would be very unlikely. Will monitor left common femoral artery region very closely. Given her lack of significant subcutaneous tissue, should be easily visible for development of hematoma in a short period of time. Conclusions: 1. Successful revascularization of acute left common femoral arterial occlusion Plan: We will monitor patient closely for any bleeding complications. Hopefully at this point she will make more of a meaningful recovery from the transcatheter aortic valve replacement.
[2018-01-07] MEDS: Sod Chloride 0.9% Inj 1,000 ML IV.CONT SCH ×2 (19:00→23:41)
[2018-01-07] MEDS ORDERED: Potassium Phosphate Inj 30 MMOL in Sodium Chlor 0.9% Inj 250 ML IV.SIG PRN (21:45)
[2018-01-07] MEDS ORDERED: Sodium Phosphate Inj 30 MMOL in Sodium Chlor 0.9% Inj 250 ML IV.SIG PRN (21:45)
[2018-01-07] MEDS ORDERED: Potassium Chlor 40 mEq Premix 40 MEQ/100 ML PIGGYBACK IV.SIG PRN ×2 (21:45)
[2018-01-07] MEDS ORDERED: Potassium Chlor 20 mEq Premix 20 MEQ/100 ML PIGGYBACK IV.SIG PRN ×2 (21:45)
[2018-01-07] MEDS ORDERED: Magnesium Oxide 400 MG Tablet PO PRN (21:45)
[2018-01-07] MEDS ORDERED: Magnesium Sulfate Inj 4 GM in Sodium Chlor 0.9% Inj 92 ML IV.SIG PRN (21:45)
[2018-01-07] MEDS ORDERED: Potassium Phosphate 500 MG Soluble Tablet PO PRN ×2 (21:45)
[2018-01-07] MEDS ORDERED: Potassium Chloride 25 MEQ Effervescent Tablet PO PRN (21:45)
[2018-01-07] MEDS ORDERED: Magnesium Sulfate Inj 2 GM in Sodium Chlor 0.9% Inj 96 ML IV.SIG PRN (21:45)
[2018-01-07] MEDS: Docusate Sodium 100 MG Capsule PO SCH (23:40)
[2018-01-08 00:23] LABS: Hematocrit 28.7 % (35.0-46.0); Hemoglobin 9.3 gm/dL (11.6-15.3)
[2018-01-08 04:36] LABS: Hematocrit 26.8 % (35.0-46.0); Hemoglobin 8.9 gm/dL (11.6-15.3); Mean Corpuscular HGB Conc 33.4 % (32.0-36.0); Mean Corpuscular Hemoglobin 32.6 pg (27.0-34.0); Mean Corpuscular Volume 97.6 fL (80.0-100.0); Mean Platelet Volume 8.3 fL (7.0-11.0); Platelet Count 127 th/mm3 (150-450); Red Blood Count 2.75 mil/mm3 (4.00-5.30); Red Cell Distribution Width 16.5 % (11.6-17.2); White Blood Count 5.8 th/mm3 (4.0-11.0)
[2018-01-08] MEDS: Sod Chloride 0.9% Inj 1,000 ML IV.CONT SCH ×2 (04:55→10:22)
[2018-01-08 05:22] LABS: Alanine Aminotransferase 14 U/L (10-53); Albumin 2.7 g/dL (3.4-5.0); Alkaline Phosphatase 145 U/L (45-117); Anion Gap 8 meq/L (5-15); Aspartate Aminotransferase 30 U/L (15-37); Blood Urea Nitrogen 13 mg/dL (7-18); Calcium 7.7 mg/dL (8.5-10.1); Carbon Dioxide 25.7 meq/L (21.0-32.0); Chloride 106 meq/L (98-107); Glomerular Filtration Rate 62 mL/min (>89); Glucose,Random 88 mg/dL (74-106); Potassium 3.6 meq/L (3.5-5.1); Sodium 140 meq/L (136-145); Total Protein 5.5 g/dL (6.4-8.2)
[2018-01-08] MEDS ORDERED: Levothyroxine 112 MCG Tablet PO SCH (06:00)
--- NOTE | 2018-01-08 08:06 | P.DS ---
Date of admission: 01/07/18 09:38 Primary care physician: Bessy Chapman MD Attending physician on discharge: Cuco Valero Brief History from admission: This is 77-year-old female who was initially transferred from [facility] after having hip fracture status post repair. At that time during her hospital stay she developed acute shortness of breath associated with hypotension. Transthoracic echocardiogram showed severe aortic valve stenosis with an aortic valve area of 0.52 cm and two-vessel coronary artery disease. She was transferred to [facility] approximately 2 weeks ago for evaluation for consideration of surgical intervention versus transcatheter aortic valve replacement. Patient has multiple comorbidities including decubitus ulcer and recent hip surgery requiring recovery. For these reasons, patient was transferred to inpatient physical rehabilitation center in anticipation of bring him back for an elective transcatheter valve replacement. Patient update on day of discharge: Doing well. No complaints. Up to chair. DS: Diagnosis - Discharge Diagnosis (1) Diastolic congestive heart failure Status: Acute (2) Aortic valve stenosis Status: Acute (3) Lower limb ischemia Status: Acute (4) Acute on chronic diastolic (congestive) heart failure Status: Acute DS: Medications - Discharge Medications Prescriptions: clopidogrel [Plavix] 75 mg PO DAILY #30 tab ferrous sulfate [FeroSul] 325 mg PO DAILY #30 tab DS: Summary Hospital Course: Transcatheter aortic valve replacement procedure was completed. Patient was noted to have left lower limb ischemia. Patient went in for revascularization of the left common femoral artery secondary to the closure device causing occlusion. Flow was reestablished with strong palpable left lower extremity pulse. Patient had uncomplicated remainder of the hospital stay overnight. - Time Spent with Patient Total time spent providing and/or coordinating discharge services: Greater than 30 minutes - Quality: VTE Deep Vein Thrombosis/Pulmonary Embolism Present on Admission: No Exam Vital signs: Vital Signs 01/07/18 11:32 01/07/18 12:00 01/07/18 13:00 Temperature 98.6 F 98.6 F Pulse Rate 95 H 95 H 104 H Respiratory Rate 18 16 Blood Pressure 119/78 112/68 Pulse Oximetry 01/07/18 14:00 01/07/18 18:30 01/07/18 19:00 Temperature 98.6 F 97.4 F L 98.2 F Pulse Rate 96 H 80 85 Respiratory Rate 16 16 20 Blood Pressure 111/74 112/71 129/68 Pulse Oximetry 100 97 97 01/07/18 20:19 01/07/18 23:00 01/08/18 03:00 Temperature 98 F 97.8 F Pulse Rate 86 78 Respiratory Rate 20 20 Blood Pressure 116/72 120/71 Pulse Oximetry 96 97 95 01/08/18 07:00 Temperature 98.7 F Pulse Rate 78 Respiratory Rate 18 Blood Pressure 101/45 L Pulse Oximetry 98 Intake & Output 01/07/18 01/08/18 01/08/18 18:59 06:59 18:59 Intake Total 750 / 750 1240 / 1240 Output Total 75 / 75 1030 / 1030 Balance 675 / 675 210 / 210 Weight 68.5 kg 75 kg Intake: IV 50 / 50 1000 / 1000 NS Inj 1,000 ML @ 125 mls/hr IV 1000 / 1000 .CONT .Q8H SABI Rx#:[id number] Ancef 2 GM Premix Inj 2 gm In 50 / 50 50 ml @ 0 mls/hr IV.SIG .STK- MED ONE Rx#:[id number] Oral 240 / 240 Anesthesia Amount 700 / 700 Output: Estimated Blood Loss 50 / 50 Urine Amount (Catheter) 1030 / 1030 Indwelling Temp Sensing / 1030 / 1030 Catheter Other: Weight On Admission 68.5 kg - Constitutional no acute distress - Routine HEENT Exam Head: Present: normocephalic Eye: Present: EOMI, PERRL ENT: Present: mucous membranes moist - Routine Neck Exam Absent: JVD - Routine Respiratory Exam Present: CTA bilaterally - Routine Cardiovascular Exam Present: RRR. Absent: murmur - Routine Abdominal Exam Present: soft, normoactive bowel sounds - Routine Extremities Exam Present: normal capillary refill. Absent: cyanosis, clubbing, edema Comments: 2+ palpable pulses bilaterally posterior tibial - Routine Neurological Exam Present: alert, oriented X3, CN II-XII intact. Absent: sensory deficit, motor deficit Results Procedures completed during hospitalization: Transcatheter aortic valve replacement Peripheral angiography Peripheral intervention Labs on day of discharge: Labs from last 24 hours 01/08/18 01/08/18 01/07/18 04:05 04:05 23:45 WBC 5.8 RBC 2.75 L Hgb 8.9 L 9.3 L D Hct 26.8 L 28.7 L MCV 97.6 MCH 32.6 MCHC 33.4 RDW 16.5 Plt Count 127 L MPV 8.3 Neut % (Auto) Lymph % (Auto) Mcdowell % (Auto) Eos % (Auto) Baso % (Auto) Neut # (Auto) Lymph # (Auto) Mcdowell # (Auto) Eos # (Auto) Baso # (Auto) WBC Differential Differential Comment PT INR APTT Sodium 140 Potassium 3.6 Chloride 106 Carbon Dioxide 25.7 Anion Gap 8 BUN 13 Creatinine 0.89 Estimated GFR 62 L Random Glucose 88 Calcium 7.7 L D Total Bilirubin 0.5 AST 30 ALT 14 Alkaline Phosphatase 145 H Total Protein 5.5 L Albumin 2.7 L Blood Type Antibody Screen Antibody Identification Rout Panel Path Interp MTS Gel Crossmatch 01/07/18 01/07/18 01/07/18 15:43 14:49 13:30 WBC RBC Hgb Hct MCV MCH MCHC RDW Plt Count MPV Neut % (Auto) Lymph % (Auto) Mcdowell % (Auto) Eos % (Auto) Baso % (Auto) Neut # (Auto) Lymph # (Auto) Mcdowell # (Auto) Eos # (Auto) Baso # (Auto) WBC Differential Differential Comment PT INR APTT Sodium Potassium Chloride Carbon Dioxide Anion Gap BUN Creatinine Estimated GFR Random Glucose Calcium Total Bilirubin AST ALT Alkaline Phosphatase Total Protein Albumin Blood Type B Positive Antibody Screen Positive H Antibody Identification Anti-Jka Rout Panel Path Interp Pending MTS Gel Crossmatch See Detail 01/07/18 01/07/18 01/07/18 13:15 13:15 13:15 WBC RBC Hgb Hct MCV MCH MCHC RDW Plt Count MPV Neut % (Auto) Lymph % (Auto) Mcdowell % (Auto) Eos % (Auto) Baso % (Auto) Neut # (Auto) Lymph # (Auto) Mcdowell # (Auto) Eos # (Auto) Baso # (Auto) WBC Differential Differential Comment PT 10.7 INR 1.1 APTT 29.2 Sodium 139 Potassium 4.1 Chloride 105 Carbon Dioxide 26.6 Anion Gap 7 BUN 12 Creatinine 0.97 Estimated GFR 56 L Random Glucose 99 Calcium 8.6 Total Bilirubin AST ALT Alkaline Phosphatase Total Protein Albumin Blood Type Antibody Screen Antibody Identification Rout Panel Path Interp MTS Gel Crossmatch 01/07/18 13:15 WBC 8.7 RBC 3.41 L Hgb 11.4 L Hct 32.7 L MCV 95.8 MCH 33.3 MCHC 34.8 RDW 17.0 Plt Count 175 D MPV 8.1 Neut % (Auto) 79.7 H Lymph % (Auto) 13.3 Mcdowell % (Auto) 6.5 Eos % (Auto) 0.1 Baso % (Auto) 0.4 Neut # (Auto) 6.9 Lymph # (Auto) 1.2 Mcdowell # (Auto) 0.6 Eos # (Auto) 0.0 Baso # (Auto) 0.0 WBC Differential . Differential Comment Auto diff final PT INR APTT Sodium Potassium Chloride Carbon Dioxide Anion Gap BUN Creatinine Estimated GFR Random Glucose Calcium Total Bilirubin AST ALT Alkaline Phosphatase Total Protein Albumin Blood Type Antibody Screen Antibody Identification Rout Panel Path Interp MTS Gel Crossmatch Discharge Plan - Discharge Disposition Patient Disposition: /Home Health Service - Discharge Condition Condition: Good - Discharge Order Discharge Orders: Discharge Order (Routine); Ordered 01/08/18 Ordered By: Cuco Valero Cardiology Clear for Discharge (Routine); Ordered 01/08/18 Ordered By: Cuco Valero - Discharge Details Anticipated Discharge Date: 01/08/18 - Physicians Team Primary Care Provider: Bessy Chapman Attending Provider: Cuco Valero Other Providers: Taniya Mustafa MD ; Eduardo Ferris MD ; Farzaneh Dobson MD - Rxs /Orders / Referrals /Forms Prescriptions: New clopidogrel [Plavix] 75 mg Tablet 75 mg PO DAILY Qty: 30 RF: 11 ferrous sulfate [FeroSul] 325 mg (65 mg iron) Tablet 325 mg PO DAILY Qty: 30 RF: 1 Continue alendronate 70 mg Tablet 70 mg PO QWEEK allopurinol 300 mg Tablet 300 mg PO DAILY aspirin 81 mg Tablet,Delayed Release (Dr/Ec) 81 mg PO DAILY RF: 0 calcium carbonate 200 mg calcium (500 mg) Tablet,Chewable 500 mg PO Q6H PRN (Reason: Dyspepsia) RF: 0 collagenase clostridium histo. [Santyl] 250 unit/gram Ointment 1 applicatio Topical DAILY RF: 0 docusate sodium 100 mg Capsule 100 mg PO PRN levothyroxine 112 mcg Tablet 112 mcg PO DAILY omeprazole 20 mg Capsule,Delayed Release(Dr/Ec) 20 mg PO DAILY oxybutynin chloride 5 mg Tablet 5 mg PO TID pravastatin 40 mg Tablet 80 mg PO DAILY Referrals: Bessy Chapman MD [Primary Care Provider] - See Instructions - Discharge Instructions Patient Printed Instructions: Transcatheter Aortic Valve Replacement (DC)
[2018-01-08] MEDS ORDERED: Ferrous Sulfate 325 MG Tablet PO SCH (09:00)
[2018-01-08] MEDS ORDERED: Allopurinol 300 MG Tablet PO SCH (09:00)
[2018-01-08] MEDS ORDERED: Pantoprazole Sodium 20 MG DR Tablet PO SCH (09:00)
[2018-01-08] MEDS: Docusate Sodium 100 MG Capsule PO SCH (09:18)
[2018-01-08 10:35] VITALS: O2SAT 97
--- NOTE | 2018-01-08 12:13 | P.PNCV ---
- Note Subjective/Hospital Course: 77yF with history of severe aortic stenosis who presents for transcatheter aortic valve replacement. Of note, she was recently hospitalized 2 weeks ago for acute pneumonia and her hospitalization was complicated at that time by a stage III sacral decubitus ulcer. Depsite this, she is currently residing in a SNF and has a normal wbc, afebrile, and has completed full antibiotic course. pt underwent TAVR procedure, soon after extubation but before moving out of the OR, it was noted that she did not have LLE pulses. they could not find PT, DP, popliteal or distal femoral pulses by palpation or Doppler signal. Although an underbody forced-air warming device was on the patient, the left lower extremity was notably more poikilothermic than the right lower extremity and it had significantly more delayed cap refill. Dr. Valero was immediately notified and came immediately to the bedside, where the decision was made to re- investigate her arterial disease in an endovascular fashion. At that time, complete occlusion of the left femoral artery was identified and endovacularly balloon repaired. 01/07 surgery : Preoperative Diagnosis (1) Diastolic congestive heart failure (2) Aortic valve stenosis Postoperative Diagnosis: same Date of procedure: 01/07/18 Procedure: Transcatheter aortic valve replacement with a 23 Rocio 3 tissue valve Bilateral femoral artery access with Perclose closure on the left Left femoral venous access Aortography fluoroscopy Conclusions: 1. Successful revascularization of acute left common femoral arterial occlusion 01/08 pt doing well left foot warm + distal pulses minimal pain Objective: Vital Signs - 24 hr 01/07/18 13:00 01/07/18 14:00 01/07/18 18:30 Temperature 98.6 F 98.6 F 97.4 F L Pulse Rate 104 H 96 H 80 Respiratory Rate 16 16 16 Blood Pressure 112/68 111/74 112/71 Pulse Oximetry 100 97 01/07/18 19:00 01/07/18 20:19 01/07/18 23:00 Temperature 98.2 F 98 F Pulse Rate 85 86 Respiratory Rate 20 20 Blood Pressure 129/68 116/72 Pulse Oximetry 97 96 97 01/08/18 03:00 01/08/18 07:00 01/08/18 10:22 Temperature 97.8 F 98.7 F Pulse Rate 78 78 Respiratory Rate 20 18 17 Blood Pressure 120/71 101/45 L Pulse Oximetry 95 98 01/08/18 10:31 01/08/18 10:33 Temperature 98.6 F Pulse Rate 96 H 96 H Respiratory Rate 20 Blood Pressure 152/76 H Pulse Oximetry 97 GENERAL: A&o x 3 SKIN: Warm and dry. dressing to both groins, intact minimal ecchymosis HEAD: Normocephalic. EYES: No scleral icterus. No injection or drainage. NECK: Supple, trachea midline. No JVD or lymphadenopathy. CARDIOVASCULAR: Regular rate and rhythm without murmurs, gallops, or rubs. RESPIRATORY: Breath sounds equal bilaterally. No accessory muscle use. GASTROINTESTINAL: Abdomen soft, non-tender, nondistended. MUSCULOSKELETAL: No cyanosis, or edema. BACK: Nontender without obvious deformity. No CVA tenderness. Labs: Laboratory Results - last 12 hr 01/07/18 01/08/18 01/08/18 23:45 04:05 04:05 WBC 5.8 RBC 2.75 L Hgb 9.3 L D 8.9 L Hct 28.7 L 26.8 L MCV 97.6 MCH 32.6 MCHC 33.4 RDW 16.5 Plt Count 127 L MPV 8.3 Sodium 140 Potassium 3.6 Chloride 106 Carbon Dioxide 25.7 Anion Gap 8 BUN 13 Creatinine 0.89 Estimated GFR 62 L Random Glucose 88 Calcium 7.7 L D Total Bilirubin 0.5 AST 30 ALT 14 Alkaline Phosphatase 145 H Total Protein 5.5 L Albumin 2.7 L Result Diagrams: 01/08/18 04:05 01/08/18 04:05 Telemetry: NSR - Plan (2) Lower limb ischemia Plan: . Successful revascularization of acute left common femoral arterial occlusion (4) Aortic valve stenosis (5) S/P TAVR (transcatheter aortic valve replacement) Plan: on ASA, plavix stable from CVS standpoint will defer further orders and discharge to cardiology (4) Aortic valve stenosis Qualifiers:
[2018-01-08 12:20] VITALS: BP 138/67; PULSE 90; RESP 16; TEMP 98.7
--- NOTE | 2018-01-08 12:38 | ECHRPT ---
Indication: S/P TAVR CONCLUSIONS Normal left ventricular size. Mild concentric left ventricular hypertrophy. The left ventricular systolic function is hyperdynamic with an estimated ejection fraction in the ra nge of 65- 70%. Status-post percutaneous aortic valve replacement. Aortic valve mean gradient is 11 mmHg. Trace aortic valve regurgitation. BP: / HR: Rhythm: Sinus MEASUREMENTS (Male / Female) Normal Values Technical Quality:Fair 2D ECHO LV Diastolic Diameter PLAX 4.1 cm 4.2 - 5.9 / 3.9 - 5.3 cm LV Systolic Diameter PLAX 2.8 cm IVS Diastolic Thickness 1.3 cm 0.6 - 1.0 / 0.6 - 0.9 cm LVPW Diastolic Thickness 1.3 cm 0.6 - 1.0 / 0.6 - 0.9 cm LV Relative Wall Thickness 0.6 RV Internal Dim ED PLAX 2.0 cm LVOT Diameter 1.9 cm Aortic Root Diameter 2.0 cm LA Systolic Diameter LX 3.7 cm 3.0 - 4.0 / 2.7 - 3.8 cm DOPPLER AV Peak Velocity 227.0 cm/s AV Peak Gradient 20.6 mmHg AV Mean Gradient 11.0 mmHg AV Velocity Time Integral 39.1 cm LVOT Peak Velocity 88.0 cm/s LVOT Peak Gradient 3.1 mmHg LVOT Velocity Time Integral 19.1 cm AV Area Cont Eq vti 1.4 cm AV Area Cont Eq pk 1.1 cm FINDINGS LEFT VENTRICLE Normal left ventricular size. Mild concentric left ventricular hypertrophy. The left ventricular systolic function is hyperdynamic with an estimated ejection fraction in the ra nge of 65- 70%. RIGHT VENTRICLE Normal right ventricular size and systolic function. LEFT ATRIUM The left atrial size is normal. RIGHT ATRIUM The right atrial size is normal. ATRIAL SEPTUM Normal atrial septal thickness without atrial level shunting by limited color doppler interrogation. AORTA The aortic root and proximal ascending aorta are normal in size on limited imaging. MITRAL VALVE Structurally normal mitral valve. No mitral valve stenosis or regurgitation. AORTIC VALVE Status-post percutaneous aortic valve replacement. Aortic valve mean gradient is 11 mmHg. Trace aortic valve regurgitation. TRICUSPID VALVE Structurally normal tricuspid valve. No tricuspid valve stenosis or regurgitation. PULMONARY VALVE The pulmonary valve is not well visualized. VESSELS The inferior vena cava is normal in size. PERICARDIUM No pericardial effusion. Cuco Valero MD, FACC (Electronically Signed) Final Date:08 January 2018 12:37
--- NOTE | 2018-01-08 14:42 | P.DCO ---
- Diagnosis (1) Acute on chronic diastolic (congestive) heart failure Status: Acute (2) Diastolic congestive heart failure Status: Acute (3) Lower limb ischemia Status: Acute (4) S/P TAVR (transcatheter aortic valve replacement) Status: Acute (5) Aortic valve stenosis Status: Acute - Physical Therapy Order: Evaluate and treat - Home Health Nursing Order: Medical education, Signs/symptoms of disease process, Wound care and dressing changes, Nursing assessment with vital signs Instructions: Recommendation: 1. Encourage patient to reposition to left and right side every 2 hours for comfort and offloading. 2. Cleanse left upper buttocks with normal saline only (wound cleanser deactivated Santyl by 80%). 3. Apply Santyl 2mm thick to necrotic wound base ,Apply Calazime cream to periwound cover with saline moistened gauze secure with border gauze or ABD.Change dressing daily or as needed for exudate management or dislodgement. 4. Sign and date all dressings. 5. Reinforce steri strip to right lateral hip incision as needed. Additional information: Patient was seen today by information writer for wound management.Patient alert on stretcher upon information writer arrival in no acute distress.Patient was able to independently reposition self to left side for visual assessment. Chef German was able to visualize sacral/coccyx region.Patient noted to have 10 day old surgical incision to lateral right hip with incision dehiscence noted ~3cm. incision cleansed with normal saline pat dry Cavilon skin prep applied 3 steri strips applied . Patient has deformed sacral/coccyx veering to right side .States deformity is caused by prior fracture.Chef German was able to visualize sacral region patient has mixed etiology moisture /friction/pressure injury measuring 6.0cm x 4.3cm x yellow/brown slough. Wound base is 80% moist yellow/ brown adhered slough 20% pink partial thickness tissue loss.wound edges are well defined irregular in shape even with wound base.Periwound blanchable.Wound cleansed with normal saline pat dry Calazime cream applied to wound base and periwound covered with ABD secure with paper tape.Patient tolerated wound acre well Barrett RN to apply Santyl when available to floor. Wound/Pressure Injury - Wound Left Sacrum Wound Staging: Unstageable Wound Assessment: Admission Wound Type: Pressure Injury Is This a Chronic Wound: Yes Requested from Provider a Wound Care Consult: No (V.Dollar RN,[facility] seen 12/19) Length (cm): 6.0 Width (cm): 4.3 Wound Bed Appearance: Necrotic, Peeling Skin, [place], Shiny Surrounding Tissue Appearance: Blanched/Dull Surrounding Tissue Temperature: Cool Drainage Description: Serosanguinous Drainage Amount: Scant Drainage Odor: No Odor Dressing Status: Changed Cleansing Solution: Saline Topical: Calazime Primary Dressing: Absorbant Pad Tape Type: Paper Wound Dressing Change Date: 12/19/17 - Case Management Consult Case Management Consult-Home Health: Yes - Certification I have seen patient Eryn Allison on 01/08/18. My clinical findings support the need for the requested home health care services because: Limited mobility due to disease progression, Deconditioned with increased weakness I certify that my clinical findings support that this patient is homebound because: Post-op weakness (5) Aortic valve stenosis Qualifiers:
--- NOTE | 2018-01-08 17:40 | P.PNWCN ---
Wound Care Nurse Consult Additional information: Attempted to see patient on 4th floor [facility]PCU for wound management consult for coccyx wound. Patient was d/c.
--- NOTE | 2018-01-08 20:42 | ECG ---
Date Performed: 01/07/2018 Time Performed: 15:01:28 PTAGE: 77 years EKG: Sinus rhythm . Right axis deviation Possible anterior infarct - age undetermined Right ventricular hypertrophy Lat eral T wave changes may be due to myocardial ischemia Abnormal ECG NO PREVIOUS TRACING DOCTOR: Steven Curiel Interpretating Date/Time 01/08/2018 20:42:37
--- NOTE | 2018-01-08 20:43 | ECG ---
Date Performed: 01/07/2018 Time Performed: 18:47:52 PTAGE: 77 years EKG: Sinus rhythm Possible anterior infarct - age undetermined Lateral T wave changes may be due to myocardial ischemi a Since the previous tracing, no significant change noted Abnormal ECG PREVIOUS TRACING : 01/07/2018 15.01 DOCTOR: Steven Curiel Interpretating Date/Time 01/08/2018 20:42:52
--- NOTE | 2018-01-08 20:43 | ECG ---
Date Performed: 01/08/2018 Time Performed: 04:04:06 PTAGE: 77 years EKG: Sinus rhythm . Ant/septal and lateral ST-T changes suggest myocardial infarct/ischemia Since the previous tracing, no significant change noted Abnormal ECG PREVIOUS TRACING : 01/07/2018 18.47 DOCTOR: Steven Curiel Interpretating Date/Time 01/08/2018 20:43:04
== END 2018-01-08 15:30 | disposition home health service (06) ==
LOC: HCVI 09:38 → HCPC 10:32 → HCVI 18:20 → HCPC 01-08 10:09
PROVIDERS: ADMIT Internal Medicine; ATTEND Internal Medicine